=== PATIENT | female | born 1935 | race Caucasian/White ===

== ENCOUNTER 2016-02-16 05:30 | Inpatient (IN) | payer OTHER ==
[2016-02-06 09:19] VITALS: BMI 28.0
--- NOTE | 2016-02-06 09:59 | PAT Medication Instructions ---
Service Date Feb 06, 2016. Current Home Medication List Aspirin Enteric Coated (Ecotrin Or Generic), 81 MG PO QAM Ipratropium-Albuterol (Duoneb), 1 TREATMENT INH Q4H PRN for PRN Lorazepam (Ativan *), 0.5 MG PO BID PRN for PRN Losartan Potassium & Hydrochlo (Losartan Potassium/Hydroc), 1 TAB PO QAM Metoprolol Tartrate (Lopressor) (Lopressor), 25 MG PO BID Sennosides-Docusate Sodium (Stool Softener), 2 TAB PO HS Simethicone (Gas-X), 1 TAB PO QPM Medication Instructions For Your Scheduled Surgery - Check with surgeon for instructions: Aspirin Enteric Coated (Ecotrin Or Generic), 81 MG PO QAM - Hold the following medications the morning of surgery: Losartan Potassium & Hydrochlo (Losartan Potassium/Hydroc), 1 TAB PO QAM - Take the following medications the morning of surgery with a sip of water: Metoprolol Tartrate (Lopressor) (Lopressor), 25 MG PO BID Lorazepam (Ativan *), 0.5 MG PO BID PRN for PRN (if needed) Ipratropium-Albuterol (Duoneb), 1 TREATMENT INH Q4H PRN for PRN (if needed) - Take the following medications as scheduled the night before surgery: Simethicone (Gas-X), 1 TAB PO QPM Sennosides-Docusate Sodium (Stool Softener), 2 TAB PO HS Metoprolol Tartrate (Lopressor) (Lopressor), 25 MG PO BID Lorazepam (Ativan *), 0.5 MG PO BID PRN for PRN (if needed) Ipratropium-Albuterol (Duoneb), 1 TREATMENT INH Q4H PRN for PRN (if needed) If you have any questions please call us at [phone] (Analia Reilly PA-C ) or [phone] or [phone]
[2016-02-06 10:40] LABS: BASO % 0.4 %; BASO ABS # 0.02 K/uL (0-0.2); COMPLETE YES; EOS % 1.4 %; HEMATOCRIT 35.7 % (37-47); IG% 0.2 %; LYMPH % 17.5 %; MEAN CELL VOLUME 91.8 fL (80-100); MEAN CORPUSCULAR HEMOGLOBIN 32.4 pg (25-34); MEAN CORPUSCULAR HGB CONC 35.3 g/dl (32-36); MEAN PLATELET VOLUME 8.6 fL (7.4-10.4); MONO % 11.6 %; NEUT % 68.9 %; PLATELET COUNT 330 K/uL (130-400); RED BLOOD COUNT 3.89 M/uL (4.2-5.4)
[2016-02-06 10:58] LABS: BUN/CREATININE RATIO 21.3 (10-20); CALCIUM 8.7 mg/dl (8.5-10.1); CREATININE 0.53 mg/dl (0.60-1.20); POTASSIUM 3.9 mmol/L (3.5-5.1)
[2016-02-16] VITALS (7 sets, daily range): BP systolic 106–127; BP diastolic 46–69; PULSE 61–84; TEMP 36.3–36.8; O2SAT 95–99; Ht 157.5 cm; Wt 68.6 kg
[~2016-02-16] VITALS: Ht 157.5 cm; Wt 68.6 kg
[~2016-02-16 05:30] MED LIST: ASPI81TA21 PO; ATV5 PO; IPRASOL4 INH; LOSA100T26 PO; METO25TA56 PO; SENNTAB23 PO; SIME80CH PO
[2016-02-16] MEDS ORDERED: LACTATED RINGER'S 1000ML 1,000 ML IV SCH (06:00)
[2016-02-16] MEDS ORDERED: ROCURONIUM BROMIDE 10 MG/ML 5 ML VIAL ONE (06:31)
[2016-02-16] MEDS ORDERED: LIDOCAINE HCL 2% 2 ML VIAL (20MG/ML) ONE (06:31)
[2016-02-16] MEDS ORDERED: ONDANSETRON INJ 2 MG/ML 2 ML VIAL ONE (06:31)
[2016-02-16] MEDS ORDERED: PROPOFOL IV EMULSION 10 MG/ML 20 ML VIAL IV ONE (06:31)
[2016-02-16] MEDS ORDERED: FENTANYL CITRATE INJ 50 MCG/1 ML 2 ML VIAL ONE ×2 (06:31→08:27)
--- NOTE | 2016-02-16 07:02 | History & Physical Bridge Note ---
H&P Re-Evaluation Bridge Note: I have examined the patient, reviewed the History & Physical and in the interval since the performance of the History & Physical I have noted the following changes of clinical significance: No changes noted
[2016-02-16] MEDS ORDERED: BUPIVACAINE LIPOSOME 1/3% 266 MG/20 ML VIAL INFIL ONE (07:12)
[2016-02-16] MEDS ORDERED: ATROPINE SULFATE 0.1 MG/ML 5ML SYR IV PRN (08:45)
[2016-02-16] MEDS ORDERED: PHENYLEPHRINE 100MCG/ML 5ML SYR IV PRN (08:45)
[2016-02-16] MEDS ORDERED: ONDANSETRON INJ 2 MG/ML 2 ML VIAL IV PRN ×2 (08:45→11:15)
[2016-02-16] MEDS ORDERED: HYDROmorphone INJ 2 MG/ML SYR/VIAL IV PRN (08:45)
[2016-02-16] MEDS ORDERED: EpHEDrine SULFATE INJ 50 MG/ML AMP IV PRN (08:45)
[2016-02-16] MEDS ORDERED: EpHEDrine SULFATE 50MG/5ML SYR ONE (09:28)
[2016-02-16] MEDS ORDERED: EpHEDrine SULFATE INJ 50 MG/ML AMP ONE (10:07)
[2016-02-16] MEDS ORDERED: ESMOLOL HCL 10 MG/ML 10 ML VIAL ONE (10:17)
[2016-02-16] MEDS ORDERED: MoRPHine SULFATE 2 MG/ML CARP IV PRN (11:15)
[2016-02-16] MEDS ORDERED: OXYCODONE/ACETAMINOPHEN 5-325 TAB PO PRN (11:15)
--- NOTE | 2016-02-16 11:46 | DIAGNOSTIC IMAGING REPORT ---
SINGLE VIEW CHEST CLINICAL HISTORY: Status post right middle lobe resection FINDINGS: An AP, portable, upright chest radiograph is compared to study dated 11/30/2015 and correlated with chest CT dated 09/16/2015. The examination is degraded by portable technique and patient rotation. The cardiomediastinal silhouette is unremarkable. There is atherosclerotic calcification of the thoracic aorta. The emphysema and chronic interstitial thickening is unchanged. There are postoperative changes and volume loss in the right lung consistent with the reported history of right middle lobe resection. Opacity in the right midlung could represent atelectasis or loculated fluid. Pleural fluid is also seen at the right lung base with associated right basilar airspace opacities. Suture material projects over the right lung base. A chest tube is now present at the right apex. No pneumothorax is seen. The skeletal structures are osteopenic. The bony thorax is grossly intact. Simultaneous emphysema is noted along the right chest wall. IMPRESSION: 1. There are postoperative changes consistent with the reported history of right middle lobe resection. 2. There is opacity in the right midlung, likely representing volume loss and/or loculated fluid. Pleural fluid is also seen at the right lung base. 3. A right chest tube is in place. No pneumothorax is seen. 4. Emphysema. Left lung appears clear. Electronically signed by: Hussein Delatorre M.D. 02/16/2016 11:45 AM Dictated Date/Time: 02/16/2016 11:41 AM
--- NOTE | 2016-02-16 12:01 | OPERATIVE REPORT ---
DATE OF OPERATION: 02/16/2016 PREOPERATIVE DIAGNOSIS: Enlarging mass right middle lobe. POSTOPERATIVE DIAGNOSIS: Adenocarcinoma right middle lobe. PROCEDURE: Thoracoscopic right middle lobectomy with mediastinal lymphadenectomy. SURGEON: Dr. Powell. SIDE LASTER TACK: Kiko Meza PA-C. ANESTHESIA: General anesthesia with endotracheal intubation using double lumen tube. INDICATION FOR PROCEDURE AND FINDINGS: This is a very nice 80-year-old female who has an enlarging mass in her right middle lobe. We worked her up and I recommended surgery a couple months ago and she sought several other opinions and came back and agreed to surgery. We set her up to be done today. She really does not have any symptoms from this. On 02/16/2016 the patient was brought to the operating room and underwent uncomplicated thoracoscopic right middle lobectomy. We had negligible blood loss. There was no air leak at the conclusion of the case. I did an Exparel block of her intercostals from the 2nd to the 11th rib and she awakened in excellent pain control. This was an adenocarcinoma of the lung. On frozen section her margins were negative. I did perform a mediastinal lymphadenectomy. PROCEDURE: The patient brought to the operating room and laid in the supine position. General anesthesia induced and endotracheal intubation was performed with a double lumen tube. Appropriate lines had been placed (a Malcolm catheter was not been placed). The patient was placed in the left lateral decubitus position and the right chest was prepped and draped in usual sterile fashion. A bit anterior to the tip of the scapula, 1 interspace below I made a small incision and entered the pleural cavity with a Veress needle and infused carbon dioxide. I then placed a 5 mm port, infused CO2 and then upon placing a 5 mm scope we could see that there were actually some significant adhesions to the chest wall. These were just in one area and I placed another port which was a 10 mm port anterior to the 7th interspace. I used a Harmonic scalpel and took these adhesions down. The fissures were almost complete. The mass was noted and was not attached to anything. I placed another port for 10 mm port at about the 4th interspace. I then began taking down adhesions between the lobes. This was easily done with flimsy adhesions between the middle lobe and the lower lobe and I was actually able to almost completely free up the fissure anteriorly. I identified the artery and worked my way up by cleaning this off bluntly and sharply. The pulmonary artery was identified and then I went to the medial aspect and identified the vein. There was an incomplete portion of the fissure anteriorly. I dissected this out medially and laterally and then was able to fire Endo-ADWOA stapler across this. This identified the arteries and veins quite nicely. I then was able to free up the middle veins draining the middle lobe. There were 2 that came off almost had a common confluence prior to going into the superior pulmonary vein and I fired a stapler across this. This freed things quite nicely and we were able to come up and follow the artery down. There were 2 branches of the pulmonary artery which led to the middle lobe and I divided both of these with Endo-ADWOA stapler. The identifier Endo-ADWOA stapler across the bronchus. I had to complete the fissure superiorly with 1 more staple line and then using an Endobag I removed the mass from the field. We sent this off for frozen section. While waiting for this we mixed 266 mg of Exparel and 60 mL of normal saline and blocked from the 2nd interspace to the 11th interspace under thoracoscopic vision. Again, while we were still waiting for the frozen section I took down the inferior pulmonary ligament and dissected out level 9 node. I really did not see much of the level 8 node. I took out 2 level 7 nodes. These were not enlarged. I also opened up the mediastinal pleura and took out a level 2, level 4, level 10, level 11. We really had insignificant bleeding in this case and there was no air leak at the conclusion of the case. When the frozen section came back with negative margins a 24-Kiswahili chest tube was directed towards the apex and anterior thoracoscopy port and sutured in place with heavy silk suture. 0 Vicryl used to approximate the muscle layers and all 3 ports and then 3-0 antibiotic impregnated Vicryl was used in a running subcuticular fashion to approximate the wound edges. I attest to the content of the Intraoperative Record and any orders documented therein. Any exceptio ns are noted below.
--- NOTE | 2016-02-16 12:45 | Anesthesiology Progress Note ---
Anesthesia Post Op Note Date & Time Feb 16, 2016 at 12:45 Vital Signs Pain Intensity: 1 Vital Signs Past 12 Hours Date Time Temp Pulse Resp B/P Pulse Ox O2 Delivery O2 Flow Rate FiO2 02/16/16 12:05 36.5 80 16 115/51 97 Nasal Cannula 4 02/16/16 11:50 73 16 107/50 97 Nasal Cannula 4 02/16/16 11:40 71 16 111/52 100 Nasal Cannula 4 02/16/16 11:30 74 16 128/57 100 Mask 10 02/16/16 11:20 36 71 16 116/63 100 Mask 10 02/16/16 07:36 67 14 99 Diffusion Mask 10.0 02/16/16 05:54 36.8 61 20 121/46 95 Room Air Notes Mental Status: alert / awake / arousable, participated in evaluation Pt Amnestic to Procedure: Yes Nausea / Vomiting: adequately controlled Pain: adequately controlled Airway Patency, RR, SpO2: stable & adequate BP & HR: stable & adequate Hydration State: stable & adequate Anesthetic Complications: no major complications apparent
[2016-02-16] MEDS ORDERED: GLYCOPYRROLATE INJ 0.2 MG/ML VIAL ONE (13:10)
[2016-02-16] MEDS ORDERED: NEOSTIGMINE METHYLSULFATE 5 MG/5 ML SYR ONE (13:10)
[2016-02-16 14:20] LABS: PARTIAL THROMBOPLASTIN RATIO 1.1; PROTHROMBIN TIME (PATIENT) 11.1 SECONDS (9.0-12.0)
[2016-02-16] MEDS: D5W AND 1/2NSS 1,000 ML IV SCH ×2 (14:45→21:03)
[2016-02-16] MEDS: KETOROLAC TROMETHAMINE 15 MG/ML VIAL IV. SCH ×2 (14:46→21:04)
[2016-02-16] MEDS: ACETAMINOPHEN IV 1,000 MG in EMPTY BAG 0 ML IV SCH ×2 (14:46→21:04)
[2016-02-16] MEDS: METOCLOPRAMIDE HCL INJ 5 MG/ML 2 ML VIAL IV. SCH ×2 (14:46→21:04)
[2016-02-16] MEDS: CLINDAMYCIN IV 900 MG in DEXTROSE 5% ADD-VANTAGE 100ML 100 ML IV SCH (19:17)
[2016-02-16] MEDS: DOCUSATE SODIUM 100 MG CAP PO SCH (21:02)
[2016-02-16] MEDS: METOPROLOL TARTRATE 25 MG TAB PO SCH (21:03)
[2016-02-17] VITALS (12 sets, daily range): BP systolic 98–146; BP diastolic 57–73; PULSE 68–98; TEMP 36.3–36.8; O2SAT 91–95
[2016-02-17] MEDS: CLINDAMYCIN IV 900 MG in DEXTROSE 5% ADD-VANTAGE 100ML 100 ML IV SCH (03:01)
[2016-02-17] MEDS: LORAZEPAM 0.5 MG TAB PO PRN ×2 (03:06→20:30)
[2016-02-17] MEDS: KETOROLAC TROMETHAMINE 15 MG/ML VIAL IV. SCH (05:03)
[2016-02-17] MEDS: D5W AND 1/2NSS 1,000 ML IV SCH (05:04)
[2016-02-17] MEDS: ACETAMINOPHEN IV 1,000 MG in EMPTY BAG 0 ML IV SCH (05:04)
[2016-02-17] MEDS: METOCLOPRAMIDE HCL INJ 5 MG/ML 2 ML VIAL IV. SCH (05:04)
[2016-02-17] MEDS: ALBUT/IPRATROP 3MG/0.5MG NEB 3 ML VIAL INH PRN ×2 (05:28→16:37)
--- NOTE | 2016-02-17 07:13 | DIAGNOSTIC IMAGING REPORT ---
CHEST ONE VIEW PORTABLE CLINICAL HISTORY: Status post right middle lobectomy. COMPARISON STUDY: Chest radiograph February 16, 2016. FINDINGS: A right sided chest tube remains in place. No pneumothorax is identified. Triangular shaped opacity projecting over the right midlung is again noted. Right hemithorax volume loss is noted. There is no evidence of pulmonary edema. There may be pulmonary vascular congestion. Mild cardiomegaly is unchanged. There is gas within the right chest wall. A small right pleural effusion has decreased in size. IMPRESSION: 1. Right sided chest tube in place. Slight decrease in size of a small right pleural effusion. No pneumothorax identified. 2. No significant change in triangular shaped right midlung opacity. Electronically signed by: Mynor Mariscal M.D. 02/17/2016 7:11 AM Dictated Date/Time: 02/17/2016 7:08 AM
[2016-02-17 08:10] LABS: BASO % 0.1 %; BASO ABS # 0.01 K/uL (0-0.2); COMPLETE YES; EOS % 0.4 %; HEMATOCRIT 28.7 % (37-47); IG% 0.3 %; LYMPH % 11.5 %; LYMPH ABS # 0.84 K/uL (1.2-3.4); MEAN CELL VOLUME 90.8 fL (80-100); MEAN CORPUSCULAR HEMOGLOBIN 32.9 pg (25-34); MEAN CORPUSCULAR HGB CONC 36.2 g/dl (32-36); MEAN PLATELET VOLUME 8.3 fL (7.4-10.4); NEUT % 80.7 %; PLATELET COUNT 244 K/uL (130-400); RED BLOOD COUNT 3.16 M/uL (4.2-5.4); WHITE BLOOD COUNT 7.32 K/uL (4.8-10.8)
[2016-02-17 08:38] LABS: BUN/CREATININE RATIO 23.5 (10-20); CALCIUM 7.9 mg/dl (8.5-10.1); CREATININE 0.71 mg/dl (0.60-1.20); POTASSIUM 3.8 mmol/L (3.5-5.1)
[2016-02-17] MEDS: DOCUSATE SODIUM 100 MG CAP PO SCH ×2 (08:43→20:23)
[2016-02-17] MEDS: ASPIRIN 81 MG ECTAB PO SCH (08:43)
[2016-02-17] MEDS: METOPROLOL TARTRATE 25 MG TAB PO SCH ×2 (08:43→20:23)
[2016-02-17] MEDS: ENOXAPARIN 40 MG/0.4 ML SYR SQ SCH (08:43)
[2016-02-17] MEDS: LOSARTAN POTASSIUM 50 MG TAB PO SCH (08:46)
[2016-02-17] MEDS ORDERED: FUROSEMIDE INJ 10 MG in SYRINGE 0 ML IV SCH (09:30)
--- NOTE | 2016-02-17 09:32 | SURGERY PROGRESS NOTE ---
DATE: 02/17/2016 Eden Fink is seen today 1 day status post thoracoscopic right middle lobectomy and mediastinal lymphadenectomy. She looks great. She is on room air with 95% saturation. She is sitting up in the chair, eating breakfast. Her chest tube has drained a total of 150 mL since surgery. It is serous drainage. She has no air leak. Chest x-ray shows complete expansion of her lung with no pneumothorax; however, there is a triangular-shaped density which I think is improved from yesterday. This may be atelectasis or it could be some intrafissure fluid. She has some wheezing today on exam. She states this occurs sometimes at home. She does have an inhaler she uses at home and I will order that to be used regularly. We will get her up and ambulating today. Today, her white count is 7320, hemoglobin of 10.4. Her sodium is 127, chloride 93, and her BUN and creatinine are 17 and 0.71. I am going to give her a bit of Lasix today as I think this may be dilutional. It should be noted that on 02/06/2016, her sodium was 129. We will also check daily weights on her. ASSESSMENT AND PLAN: Postoperative day #1 status post thoracoscopic right middle lobectomy. We will correct her electrolytes by stopping her fluids, gently diuresing her, and we will get her up mobilizing and I will probably discharge her in the morning.
[2016-02-18] VITALS (13 sets, daily range): BP systolic 146–188; BP diastolic 63–78; PULSE 61–102; TEMP 36.6–37.1; O2SAT 88–95
[2016-02-18] MEDS: ALBUT/IPRATROP 3MG/0.5MG NEB 3 ML VIAL INH PRN ×4 (02:14→11:24)
[2016-02-18 07:25] LABS: BUN/CREATININE RATIO 14.4 (10-20); CALCIUM 8.1 mg/dl (8.5-10.1); CREATININE 0.54 mg/dl (0.60-1.20); POTASSIUM 3.9 mmol/L (3.5-5.1)
[2016-02-18] MEDS: LOSARTAN POTASSIUM 50 MG TAB PO SCH (07:32)
[2016-02-18] MEDS: ASPIRIN 81 MG ECTAB PO SCH (07:32)
[2016-02-18] MEDS: DOCUSATE SODIUM 100 MG CAP PO SCH ×2 (07:32→21:52)
[2016-02-18] MEDS: METOPROLOL TARTRATE 25 MG TAB PO SCH ×2 (07:33→21:52)
[2016-02-18] MEDS: ENOXAPARIN 40 MG/0.4 ML SYR SQ SCH (07:33)
[2016-02-18] MEDS ORDERED: POLYETHYLENE (MIRALAX) 17 GM PACK PO PRN (17:00)
--- NOTE | 2016-02-18 17:27 | DIAGNOSTIC IMAGING REPORT ---
CHEST 2 VIEWS ROUTINE CLINICAL HISTORY: Status post chest tube removal. Right middle lobectomy. COMPARISON STUDY: Chest radiograph February 17, 2016. FINDINGS: The right chest tube has been removed. A tiny right apical pneumothorax is noted with pleural separation of 4 mm. [place] shaped right midlung opacity is again noted. A small right pleural effusion has slightly increased. There is interstitial thickening which is unchanged. Cardiac size is stable. IMPRESSION: 1. Tiny right apical pneumothorax following chest tube removal. 2. Slight increase in size of a small right pleural effusion. 3. Persistent triangular-shaped right midlung opacity. Electronically signed by: Mynor Mariscal M.D. 02/18/2016 5:25 PM Dictated Date/Time: 02/18/2016 5:24 PM
--- NOTE | 2016-02-18 17:39 | SURGERY PROGRESS NOTE ---
DATE: 02/18/2016 SUBJECTIVE: Ms. Fink was seen today on 02/18/2016. She is 2 days status post thoracoscopic right middle lobectomy and mediastinal lymphadenectomy. She looks good. Her saturations are in the mid 90s on room air. Respiration rate 16-20. Her blood pressure has been elevated, but she has a chest tube in. Her blood pressure this morning was 146/73 and this evening it is 184/73. I removed her chest tube and I am going to see if this will come down. I prefer not to add any antihypertensives at this point as her discharge is eminent. Her lung sounds much better. She has no wheezing today. Her electrolytes have improved after we stopped the IV fluids. Her sodium is at 132, potassium 3.9, chloride is 96 and her BUN and creatinine are 10 and 0.8. I am going to give her 1 more dose of diuretic today. She is definitely better after we pulled the chest tube. Will check an AP and lateral chest and tentatively discharge her tomorrow, although thus far there are some disposition issues as she lives alone and is almost 81 years old.
[2016-02-18] MEDS ORDERED: FUROSEMIDE INJ 10 MG in SYRINGE 0 ML IV ONE (17:45)
[2016-02-18] MEDS: POTASSIUM CHLORIDE 20 MEQ TABCR PO SCH (19:41)
[2016-02-18] MEDS: LORAZEPAM 0.5 MG TAB PO PRN (21:52)
[2016-02-19 07:43] VITALS: BP 159/68; PULSE 90; TEMP 36.7; O2SAT 94
--- NOTE | 2016-02-19 08:05 | Discharge Instructions ---
Discharge Instructions Admission Reason for Admission: Right Lung Mass Discharge Discharge Diagnosis / Problem: Lung Cancer Discharge Goals Goal(s): Learn about illness Activity Recommendations Activity Limitations: as noted below Lifting Limitations: none Shower/Bathe: tomorrow 1. Do not drive if taking pain medication. 2. You may shower and clean incisions with soap and water. No tub baths. 3. Do not fly until cleared to do so by Dr. Powell. . Instructions / Follow-Up Instructions / Follow-Up 1. Dr. Powell in 1 week. Office will call you with date and time of appointment. You will need a chest x-ray prior to appointment. Current Hospital Diet Patient's current hospital diet: Regular Diet Discharge Diet Recommended Diet: Regular Diet Procedures Procedures Performed: Right Video Assisted Thoracoscopy with Right Middle Lobectomy and Mediastinal Lymphadenectomy Pending Studies Studies pending at discharge: no Medical Emergencies . Who to Call and When: Medical Emergencies: If at any time you feel your situation is an emergency, please call 911 immediately. . Non-Emergent Contact Non-Emergency issues call your: Surgeon Call Non-Emergent contact if: you have a fever, your pain is not controlled, your pain is worsening, wound has increased drainage . "Provider Documentation" section prepared by Jacob Meza. VTE Core Measure Inpt VTE Proph given/why not?: Enoxaparin (Lovenox)SQ
--- NOTE | 2016-02-19 08:07 | Anesthesiology Progress Note ---
Anesthesia Post Op Note Date & Time Feb 19, 2016 at 08:06 Vital Signs Pain Intensity: 0.0 Vital Signs Past 12 Hours Date Time Temp Pulse Resp B/P Pulse Ox O2 Delivery O2 Flow Rate FiO2 02/19/16 07:43 36.7 90 24 159/68 94 Nasal Cannula 1.5 02/19/16 00:27 Room Air 02/18/16 22:55 36.6 80 18 169/72 93 Room Air 02/18/16 21:49 102 187/74 Notes Mental Status: alert / awake / arousable, participated in evaluation Pt Amnestic to Procedure: Yes Nausea / Vomiting: adequately controlled Pain: adequately controlled Airway Patency, RR, SpO2: stable & adequate BP & HR: stable & adequate Hydration State: stable & adequate Anesthetic Complications: no major complications apparent
[2016-02-19 08:21] VITALS: O2SAT 94
[2016-02-19] MEDS: POTASSIUM CHLORIDE 20 MEQ TABCR PO SCH (08:53)
[2016-02-19] MEDS: ASPIRIN 81 MG ECTAB PO SCH (08:54)
[2016-02-19] MEDS: METOPROLOL TARTRATE 25 MG TAB PO SCH (08:54)
[2016-02-19] MEDS: LOSARTAN POTASSIUM 50 MG TAB PO SCH (08:54)
[2016-02-19] MEDS: DOCUSATE SODIUM 100 MG CAP PO SCH (08:54)
[2016-02-19] MEDS ORDERED: DOCU-94 PO (08:55)
[2016-02-19] MEDS ORDERED: TRAM-10 PO (08:55)
[2016-02-19] MEDS: ENOXAPARIN 40 MG/0.4 ML SYR SQ SCH (08:55)
[2016-02-19] MEDS: LORAZEPAM 0.5 MG TAB PO PRN (09:03)
[2016-02-19 09:24] VITALS: O2SAT 93
--- NOTE | 2016-02-19 10:30 | DIAGNOSTIC IMAGING REPORT ---
CHEST 2 VIEWS ROUTINE CLINICAL HISTORY: hypoxia COMPARISON STUDY: 02/18/2016 FINDINGS: The heart is mildly enlarged. There is a persistent right pleural effusion. There is a tiny right apical pneumothorax. There is a triangular right midlung zone opacity unchanged from the preceding study. This could represent intrafissural fluid.[ IMPRESSION: 1. Trace right apical pneumothorax 2. Persistent right pleural effusion unchanged in size 3. Persistent triangular within the right midlung zone Electronically signed by: Donavan Mccall M.D. 02/19/2016 10:28 AM Dictated Date/Time: 02/19/2016 10:26 AM
[2016-02-19 11:41] VITALS: BP 150/70; PULSE 76; TEMP 36.9; O2SAT 94
--- NOTE | 2016-02-19 12:58 | DISCHARGE SUMMARY ---
DATE OF DISCHARGE: 02/19/2016 DISCHARGE DIAGNOSES: Nonsmall cell lung carcinoma, right middle lobe. HOSPITAL COURSE: Edne Fink is a soon to be 81-year-old female who has a mass that has been growing in her right middle lobe, which is concerning. I have been following her for several months and recommended a thoracoscopic resection of this mass. She sought several opinions and then came back. On 02/16/2016 I took the patient to the operating room and did an uncomplicated right middle lobectomy thoracoscopically with a lymph node dissection. This does appear to be an adenocarcinoma with papillary features. We had clean resection margins. The final pathology and lymph node analysis is not back. We watched her on the floor that night after surgery. We did not use a Malcolm catheter in her, and quite frankly she had no air leak and we lost a minimal amount of blood during the case. She was up in a chair the night of surgery and was ambulating in the room. She was ambulating in the hallway the following day. Postop day 2, I removed her chest tube. However, her A-a gradient was a bit higher than I would like. I asked that this patient stay in the hospital another day and ambulate in the hallway and work on her pulmonary toilet. In addition, her sodium was low for reasons which are not clear and after giving her some Lasix and stopping her IV fluids, her sodium came up 127 to 132. She moved her bowels. She was tolerating a regular diet. She had very little in the way of pain. The following day, she did have a small right pleural effusion, but no evidence of pneumothorax and I discharged her home on postoperative day 3. A 2-step evaluation was performed by Respiratory and she did not qualify for oxygen. The patient's daughter, Floridalma Aparicio, works in the lab here at [facility]. I discussed this with Floridalma before discharging her. The patient lives alone and is almost 81 years old; however, she stated she felt "great" and wanted to go home. I will see her back in the office next week with a chest x-ray. I instructed the patient to call me should any problems arise.
[2016-02-19 13:02] VITALS: BP 150/70; PULSE 76; TEMP 36.9; O2SAT 94
== END 2016-02-19 13:30 | disposition home health service (06) | DRG 165 ==
LOC: ENRESERVDT → ENRESERVTM → C.ACU 05:30 → C.MSN 07:03
PROVIDERS: ADMIT Surgery; ATTEND Surgery
PROC: 07B70ZX Excision of Thorax Lymphatic, Open Approach, Diagnostic (ICD-10-PCS; 2016-02-16)
PROC: 0BTD4ZZ Resection of Right Middle Lung Lobe, Percutaneous Endoscopic Approach (ICD-10-PCS; principal; 2016-02-16 07:15)
DX: C34.2 Malignant neoplasm of middle lobe, bronchus or lung (principal)

== ENCOUNTER → 2016-02-28 | Outpatient (CLI) | payer OTHER ==
[~2016-02-28] MED LIST changes: +DOCU-94 PO; +TRAM-10 PO
--- NOTE | 2016-02-28 15:28 | DIAGNOSTIC IMAGING REPORT ---
TWO VIEW CHEST CLINICAL HISTORY: Pulmonary nodule. FINDINGS: PA and lateral chest radiographs are compared to study dated 02/19/2016 and correlated with chest CT dated 09/16/2015. The cardiomediastinal silhouette is unremarkable. There is atherosclerotic calcification of the thoracic aorta. There are postoperative changes from right-sided pulmonary resection. Fluid is again noted at the right lung base with right basilar opacities. Focal opacification is again seen in the right midlung. This could represent airspace opacification versus loculated fluid within the right fissure. There is no pneumothorax. The skeletal structures are osteopenic. Degenerative change is seen throughout the thoracic spine. 16 is gas is noted in the right chest wall. IMPRESSION: 1. There are postoperative changes from right-sided pulmonary resection with pleural fluid at the right lung base. This is similar to previous. 2. Opacification in the right midlung is unchanged. This could represent airspace opacification versus fluid within the fissure. 3. The left lung appears clear. Electronically signed by: Hussein Delatorre M.D. 02/28/2016 3:26 PM Dictated Date/Time: 02/28/2016 3:24 PM
== END | disposition home or self-care (01) ==
LOC: C.RAD 14:50
PROVIDERS: ATTEND Surgery
DX: R91.1 Solitary pulmonary nodule (principal)

== ENCOUNTER → 2017-05-14 | Outpatient (CLI) | payer OTHER ==
[~2017-05-14] MED LIST changes: -LOSA100T26 PO; +LOSA100T33 PO; -TRAM-10 PO
--- NOTE | 2017-05-14 11:46 | DIAGNOSTIC IMAGING REPORT ---
L KNEE 1 OR 2 VIEWS ROUTINE CLINICAL HISTORY: 82 years-old Female presenting with SYNOVIAL CYST OF POPLITEAL SPACE GAGNON UNSPECIFIED. TECHNIQUE: Frontal and lateral views of the left knee were obtained. COMPARISON: None. FINDINGS: Osteopenia. Mild medial joint space loss. No acute fracture allowing for osteopenia. No acute malalignment. Minimal osteophytosis noted at the medial compartment. No joint effusion. Atherosclerosis. IMPRESSION: 1. Evaluation for popliteal cyst is highly limited on radiograph. 2. Degenerative changes of the medial compartment. 3. Osteopenia. 4. No acute osseous injury. Electronically signed by: Surya Millan M.D. 05/14/2017 11:45 AM Dictated Date/Time: 05/14/2017 11:44 AM
== END | disposition home or self-care (01) ==
LOC: C.RAD1850 11:27
PROVIDERS: ATTEND Family Medicine
DX: M71.20 Synovial cyst of popliteal space [Baker], unspecified knee (principal)

== ENCOUNTER 2021-11-17 12:27 | Observation (INO) ==
[2021-11-17 14:33] LABS: Basophils # (auto) 0.04 K/uL (0-0.2); Basophils % (auto) 0.5 %; Eosinophils # (auto) 0.01 K/uL (0-0.50); Eosinophils % (auto) 0.1 %; Hematocrit (blood only) 35.6 % (34.1-44.9); Hemoglobin 12.2 g/dl (12.0-16.0); Immature Granulocytes # (auto) 0.03 K/uL (0.00-0.02); Immature Granulocytes % (auto) 0.4 %; Lymphocytes # (auto) 0.71 K/uL (1.2-3.4); Lymphocytes % (auto) 9.5 %; Mean Corpuscular Hgb Conc 34.3 g/dL (32.0-36.0); Mean Corpuscular Volume 90.4 fL (80.0-100.0); Mean Platelet Volume 8.7 fL (9.4-12.3); Monocytes # (auto) 0.75 K/uL (0.24-0.82); Neutrophils # (auto) 5.93 K/uL (1.4-6.5); Neutrophils % (auto) 79.5 %; Platelet Count 549 K/uL (130-400); RDW Coefficient of Variation 12.1 % (11.5-14.5); RDW Standard Deviation 40.2 fL (36.4-46.3); Red Blood Count 3.94 M/uL (3.93-5.22); White Blood Count 7.47 K/ul (4.8-10.8)
--- NOTE | 2021-11-17 14:43 | Emergency Department Note ---
Impression & Plan Acute exacerbation of chronic obstructive airways disease, Pulmonary edema, Hypoxia, Elevated troponin I level, Atrial fibrillation with rapid ventricular response, Acute hyponatremia ED Provider Note NAME: SALLIE COX AGE: 86 SEX: F : 1935 ARRIVES VIA: Walk-In INFORMANT: Patient, the patient's daughter ED PROVIDER(S): Lev Rizo DO CHIEF COMPLAINT: Shortness of breath HPI: The patient is an 86-year-old female who presented to the emergency department with her daughter for an evaluation of shortness of breath. The patient has been noticing shortness of breath symptoms over the course the last month. She does have a productive cough. She denies any hemoptysis. She has noticed some anterior chest discomfort which she describes a burning. This is also been ongoing for approximately 1 month. She is not been seen by her family doctor for the symptoms. She denies having any vomiting. The patient has not had any recent traveling. She does use tobacco products. She denies having any changes to her medications. She states she has been compliant with her outpatient medications. She has had no COVID exposure as far she knows. She states symptoms worsen with exertion. She also states that she has been having trouble lying flat recently because of shortness of breath. ROS: See above HPI for pertinent positives & negatives. A total of 10 systems reviewed and were otherwise negative. PAST MEDICAL HISTORY: See Below PAST SURGICAL HISTORY: See Below FAMILY HISTORY: See Below SOCIAL HISTORY: See Below HOME MEDICATIONS: See Below ALLERGIES: See Below VITALS: See Below PHYSICAL EXAMINATION: GENERAL: Patient is awake alert in no acute distress patient is resting c omfortably and showing no signs of anxiety EYES: The conjunctivae are clear. The pupils are round and reactive. EARS, NOSE, MOUTH AND THROAT: The nose is without any evidence of any deformity. Mucous membranes are moist. Tongue is midline. NECK: The neck is nontender and supple. RESPIRATORY: Diminished breath sounds are noted throughout. Rales were noted in all lung gimenez. There was conversational dyspnea. The patient was also noted to have tachypnea. CARDIOVASCULAR: Tachycardic and irregular heart sounds were noted auscultation. There is no definite murmur. GASTROINTESTINAL: The abdomen is soft. Abdomen is nontender. MUSCULOSKELETAL/EXTREMITIES: There is no evidence of gross deformity full range of motion is noted in the hips and shoulders. SKIN: There is no obvious evidence of any rash. Trace pedal edema was noted bilaterally. NEUROLOGIC: Patient is awake alert and oriented x3. MEDICAL DECISION MAKING: The patient is an 86-year-old female who presented to the emergency department for an evaluation of difficulty breathing. The patient was having significant difficulty breathing when I initially evaluated her. Lung sounds were abnormal. It did appear that she was in rapid atrial fibrillation which would be a new diagnosis for her. Because of this new atrial fibrillation as well as her lung findings I thought this could be significant for pulmonary edema. The patient was treated with supplemental oxygen. She was also given Lasix as well as a DuoNeb. She was feeling somewhat improved on reevaluation but given the pat ient's findings otherwise including her chest x-ray and her elevated troponin I discussed her case [facility] They have agreed to evaluate the patient in the emergency department for further management and disposition. Initially I thought the patient could be suffering from a pulmonary infection but her chest x-ray was not consistent with infection. She did have some inflammatory markers that were elevated but her procalcitonin was negative. I will the decision for antibiotics to the admitting team and I did discuss this with the admitting team. Triage Nursing notes reviewed. Prior medical records reviewed Vital Signs: reviewed and remarkable for elevated blood pressure tachycardia and hypoxia. Differential diagnosis: Reactive airway disease, pneumonia, pneumothorax, COPD, CHF, infections, cardiac ischemia, pulmonary embolism, musculoskeletal, gastrointestinal, as well as other pathologies. ER treatment provided: See below Diagnostics interpreted by me: ECG: EKG was obtained in the emergency department. My interpretation is atrial fibrillation at 109 bpm. Poor R wave progression was noted. LVH was suggested by voltage criteria. Diffuse ST segment depressions were noted especially in the inferior and lateral leads. This was compared to a tracing from February 26, 2018. Atrial fibrillation has replaced sinus rhythm. Cardiac Monitoring: An order was placed for continuous cardiac monitoring. The monitor shows a rate of 101 bpm with atrial fibrillation with RVR. Laboratory studies: As stated above and show below. Imaging studies: See below Consultation(s): I discussed this case with Branden who is [facility] ED COURSE: Procedures: none Critical Care: I have personally spent greater than 45 minutes of critical care time in the direct management of this patient. This includes bedside care, interpretation of diagnostic studies, and testing, discussion with consultants, patient, and family members, and other required patient management activities. This 45 minutes is in excess of all separately billable procedures. Past Med/Surg History Medical History (Updated 11/17/21 @ 16:47 by Lev Rizo DO) Contusion of rib on right side Fall Lung cancer Social History Smoking Status: Current every day smoker Preferred Language: Israeli Current Living Situation: Family Feels Safe at Home: Yes Allergies Allergies Allergy/AdvReac Type Severity Reaction Status Date / Time penicillin G Allergy Intermediate HIVES,RASH Verified 11/17/21 16:13 Sulfa (Sulfonamide Allergy Intermediate Hives Verified 11/17/21 16:13 Antibiotics) codeine AdvReac Severe HALLUCINATI Verified 11/17/21 16:13 ONS Home Meds Home Medications Medication Instructions Recorded Confirmed aspirin 81 mg tablet,delayed 81 mg PO DAILY 02/26/18 11/17/21 release escitalopram oxalate 5 mg tablet 5 mg PO DAILY 02/26/18 11/17/21 lorazepam 0.5 mg tablet 0.5 mg PO BID PRN Anxiety 02/26/18 11/17/21 metoprolol tartrate 25 mg tablet 25 mg PO BID 02/26/18 11/17/21 azithromycin 500 mg tablet 500 mg PO DIRECTED PRN PRIOR TO 11/17/21 11/17/21 DENTAL APPT. cetirizine 10 mg tablet (All Day 10 mg PO DAILY 11/17/21 11/17/21 Allergy (cetirizine)) cholecalciferol (vitamin D3) 25 25 mcg PO DAILY 11/17/21 11/17/21 mcg (1,000 unit) capsule (Vitamin D3) simethicone 80 mg chewable tablet 80 mg PO DIRECTED PRN 11/17/21 11/17/21 BLOATING/GAS DISCOMFORT telmisartan 80 mg tablet 80 mg PO DAILY 11/17/21 11/17/21 Results & Data (ED) Vital Signs Vital Signs - 24 hr 11/17/21 12:52 11/17/21 13:21 11/17/21 14:18 Temperature 36.9 C Temperature Source Temporal Artery Scan Pulse Rate 125 H Pulse Rate [Apical] 109 H Pulse Rhythm Regular Pulse Strength Normal Respiratory Rate 24 20 Respiratory Effort / Characteristics Spontaneous Short of Breath SOB on Exertion Non-Labored Respiratory Depth Normal Normal Respiratory Pattern Tachypnea Blood Pressure 133/56 L Blood Pressure [Left Arm] 148/85 H Blood Pressure Mean 81 Blood Pressure Mean [Left Arm] 106 Blood Pressure Position Sitting Pulse Oximetry 91 91 96 Oxygen Delivery Method Room Air Nasal Cannula Nasal Cannula Oxygen Flow Rate 0 2 Sepsis Recent Fever Within 48 Hours No Sepsis New/Unexplained Change in Mental Status No Sepsis Action Taken by Nursing No Action Required Oxygen Flow Rate - Titration 2 Pulse Oximetry Post Tiitration 93 11/17/21 14:44 11/17/21 16:04 11/17/21 16:49 Temperature Temperature Source Pulse Rate Pulse Rate [Apical] 106 H 103 H 101 H Pulse Rhythm Pulse Strength Respiratory Rate 20 18 18 Respiratory Effort / Characteristics Non-Labored Non-Labored Spontaneous Non-Labored Respiratory Depth Normal Normal Normal Respiratory Pattern Blood Pressure Blood Pressure [Left Arm] 153/76 H 144/80 H 144/56 H Blood Pressure Mean Blood Pressure Mean [Left Arm] 101 101 85 Blood Pressure Position Pulse Oximetry 93 92 92 Oxygen Delivery Method Room Air Room Air Room Air Oxygen Flow Rate Sepsis Recent Fever Within 48 Hours Sepsis New/Unexplained Change in Mental Status Sepsis Action Taken by Nursing Oxygen Flow Rate - Titration Pulse Oximetry Post Tiitration Home Medications Current Medication List: was personally reviewed by me Laboratory Data Attestation: I reviewed the patient's lab results. Result diagrams: 11/17/21 14:00 11/17/21 14:00 Lab Results 11/17/21 11/17/21 11/17/21 Range/Units 14:00 14:00 14:00 WBC 7.47 (4.8-10.8) K/ul RBC 3.94 (3.93-5.22) M/uL Hgb 12.2 (12.0-16.0) g/dl Hct 35.6 (34.1-44.9) % MCV 90.4 (80.0-100.0) fL MCH 31.0 (25.0-34.0) pg MCHC 34.3 (32.0-36.0) g/dL RDW Std Deviation 40.2 (36.4-46.3) fL RDW Coeff of [place] 12.1 (11.5-14.5) % Plt Count 549 H (130-400) K/uL MPV 8.7 L (9.4-12.3) fL Immature Gran % (Auto) 0.4 % Neut % (Auto) 79.5 % Lymph % (Auto) 9.5 % [place] % (Auto) 10.0 % Eos % (Auto) 0.1 % Baso % (Auto) 0.5 % Neut # (Auto) 5.93 (1.4-6.5) K/uL Lymph # (Auto) 0.71 L (1.2-3.4) K/uL [place] # (Auto) 0.75 (0.24-0.82) K/uL Eos # (Auto) 0.01 (0-0.50) K/uL Baso # (Auto) 0.04 (0-0.2) K/uL Immature Gran # (Auto) 0.03 H (0.00-0.02) K/uL ESR (0-30) mm/hr PT 11.6 (9.0-12.0) Seconds INR 1.1 (0.9-1.1) APTT 31.3 H (21.0-31.0) Seconds PTT Ratio 1.1 VBG pH (7.36-7.41) VBG pCO2 (38-50) mmHg VBG pO2 mmHg VBG HCO3 mmol/L VBG O2 Saturation % VBG Base Excess mEq/L Sodium 123 L (136-145) mmol/L Potassium 3.9 (3.5-5.1) mmol/L Chloride 89 L (98-107) mmol/L Carbon Dioxide 28 (21-32) mmol/L Anion Gap 6 (3-11) BUN 12 (6-23) mg/dl Creatinine 0.61 (0.6-1.2) mg/dl Est Cr Clr Drug Dosing 46.0 ml/min Est GFR ( Amer) 95.8 ml/min Est GFR (Non-Af Amer) 82.7 ml/min BUN/Creatinine Ratio 19.7 (10-20) Glucose 110 H (70-99(Fasting)) mg/dl Lactate (0.4-2.0) mmol/L Calcium 9.1 (8.5-10.1) mg/dl Magnesium 1.7 (1.7-2.4) mg/dl Total Bilirubin 0.9 (0.2-1.0) mg/dl Direct Bilirubin 0.2 (0-0.2) mg/dl AST 11 L (13-39) U/L ALT 4 L (7-52) U/L Alkaline Phosphatase 92 (34-104) U/L Troponin I High Sens 67.6 H* (0-14) pg/ml C-Reactive Protein 8.28 H (0-0.5) mg/dl Total Protein 7.1 (6.0-8.3) gm/dl Albumin 3.4 (3.4-5.0) gm/dl Globulin 3.7 (2.5-4.0) gm/dl Albumin/Globulin Ratio 0.9 (0.9-2) Procalcitonin (0-0.5) ng/ml SARS-CoV-2 (PCR) (Negative) Influenza Type A (PCR) (Neg) Influenza Type B (PCR) (Neg) RSV (RT-PCR) (Neg) 11/17/21 11/17/21 11/17/21 Range/Units 14:00 14:00 14:00 WBC (4.8-10.8) K/ul RBC (3.93-5.22) M/uL Hgb (12.0-16.0) g/dl Hct (34.1-44.9) % MCV (80.0-100.0) fL MCH (25.0-34.0) pg MCHC (32.0-36.0) g/dL RDW Std Deviation (36.4-46.3) fL RDW Coeff of [place] (11.5-14.5) % Plt Count (130-400) K/uL MPV (9.4-12.3) fL Immature Gran % (Auto) % Neut % (Auto) % Lymph % (Auto) % [place] % (Auto) % Eos % (Auto) % Baso % (Auto) % Neut # (Auto) (1.4-6.5) K/uL Lymph # (Auto) (1.2-3.4) K/uL [place] # (Auto) (0.24-0.82) K/uL Eos # (Auto) (0-0.50) K/uL Baso # (Auto) (0-0.2) K/uL Immature Gran # (Auto) (0.00-0.02) K/uL ESR 96 H (0-30) mm/hr PT (9.0-12.0) Seconds INR (0.9-1.1) APTT (21.0-31.0) Seconds PTT Ratio VBG pH (7.36-7.41) VBG pCO2 (38-50) mmHg VBG pO2 mmHg VBG HCO3 mmol/L VBG O2 Saturation % VBG Base Excess mEq/L Sodium Cancelled (136-145) mmol/L Potassium Cancelled (3.5-5.1) mmol/L Chloride Cancelled (98-107) mmol/L Carbon Dioxide Cancelled (21-32) mmol/L Anion Gap Cancelled (3-11) BUN Cancelled (6-23) mg/dl Creatinine Cancelled (0.6-1.2) mg/dl Est Cr Clr Drug Dosing Cancelled ml/min Est GFR ( Amer) Cancelled ml/min Est GFR (Non-Af Amer) Cancelled ml/min BUN/Creatinine Ratio Cancelled (10-20) Glucose Cancelled (70-99(Fasting)) mg/dl Lactate (0.4-2.0) mmol/L Calcium Cancelled (8.5-10.1) mg/dl Magnesium (1.7-2.4) mg/dl Total Bilirubin Cancelled (0.2-1.0) mg/dl Direct Bilirubin Cancelled (0-0.2) mg/dl AST Cancelled (13-39) U/L ALT Cancelled (7-52) U/L Alkaline Phosphatase Cancelled (34-104) U/L Troponin I High Sens Cancelled (0-14) pg/ml C-Reactive Protein Cancelled (0-0.5) mg/dl Total Protein Cancelled (6.0-8.3) gm/dl Albumin Cancelled (3.4-5.0) gm/dl Globulin (2.5-4.0) gm/dl Albumin/Globulin Ratio (0.9-2) Procalcitonin < 0.05 (0-0.5) ng/ml SARS-CoV-2 (PCR) (Negative) Influenza Type A (PCR) (Neg) Influenza Type B (PCR) (Neg) RSV (RT-PCR) (Neg) 11/17/21 11/17/21 11/17/21 Range/Units 14:39 14:44 14:53 WBC (4.8-10.8) K/ul RBC (3.93-5.22) M/uL Hgb (12.0-16.0) g/dl Hct (34.1-44.9) % MCV (80.0-100.0) fL MCH (25.0-34.0) pg MCHC (32.0-36.0) g/dL RDW Std Deviation (36.4-46.3) fL RDW Coeff of [place] (11.5-14.5) % Plt Count (130-400) K/uL MPV (9.4-12.3) fL Immature Gran % (Auto) % Neut % (Auto) % Lymph % (Auto) % [place] % (Auto) % Eos % (Auto) % Baso % (Auto) % Neut # (Auto) (1.4-6.5) K/uL Lymph # (Auto) (1.2-3.4) K/uL [place] # (Auto) (0.24-0.82) K/uL Eos # (Auto) (0-0.50) K/uL Baso # (Auto) (0-0.2) K/uL Immature Gran # (Auto) (0.00-0.02) K/uL ESR (0-30) mm/hr PT (9.0-12.0) Seconds INR (0.9-1.1) APTT (21.0-31.0) Seconds PTT Ratio VBG pH 7.42 H (7.36-7.41) VBG pCO2 44 (38-50) mmHg VBG pO2 57 mmHg VBG HCO3 29 mmol/L VBG O2 Saturation 89.6 % VBG Base Excess 3.5 mEq/L Sodium (136-145) mmol/L Potassium (3.5-5.1) mmol/L Chloride (98-107) mmol/L Carbon Dioxide (21-32) mmol/L Anion Gap (3-11) BUN (6-23) mg/dl Creatinine (0.6-1.2) mg/dl Est Cr Clr Drug Dosing ml/min Est GFR ( Amer) ml/min Est GFR (Non-Af Amer) ml/min BUN/Creatinine Ratio (10-20) Glucose (70-99(Fasting)) mg/dl Lactate 1.2 (0.4-2.0) mmol/L Calcium (8.5-10.1) mg/dl Magnesium (1.7-2.4) mg/dl Total Bilirubin (0.2-1.0) mg/dl Direct Bilirubin (0-0.2) mg/dl AST (13-39) U/L ALT (7-52) U/L Alkaline Phosphatase (34-104) U/L Troponin I High Sens (0-14) pg/ml C-Reactive Protein (0-0.5) mg/dl Total Protein (6.0-8.3) gm/dl Albumin (3.4-5.0) gm/dl Globulin (2.5-4.0) gm/dl Albumin/Globulin Ratio (0.9-2) Procalcitonin (0-0.5) ng/ml SARS-CoV-2 (PCR) NEGATIVE (Negative) Influenza Type A (PCR) Negative (Neg) Influenza Type B (PCR) Negative (Neg) RSV (RT-PCR) Negative (Neg) Administered Medications Discontinued Medications Albuterol (Albut/Ipratrop 3mg/0.5mg Neb 3 Ml Vial) 3 ml NEB NOW STA; Protocol Stop: 11/17/21 16:42 Last Admin: 11/17/21 16:49 Dose: 3 ml Documented By: [facility] Furosemide (Furosemide 40 Mg/4 Ml Vial) 40 mg IV ONE ONE Stop: 11/17/21 16:42 Last Admin: 11/17/21 16:49 Dose: 40 mg Documented By: [facility] Imaging Data Radiologist's Impression: Chest X-Ray 11/17/21 13:31 XR chest 1V portable CLINICAL HISTORY: Shortness of breath. COMPARISON STUDY: Chest radiograph February 26, 2018. PET/CT October 11, 2015. FINDINGS: There is no pneumothorax. Small right and trace left pleural effusions are present. Postoperative findings within the right lung are present. Interstitial thickening favors mild pulmonary edema. There is a 3.1 cm masslike opacity within the left midlung. Possible additional 3 cm nodular opacity within the left mid to upper lung is noted. IMPRESSION: 1. Several nodular opacities within the left lung, as described above. These may be neoplastic. Nonemergent chest CT is recommended. 2. Small right and trace left pleural effusions. Suspected mild interstitial pulmonary edema. ACT 112: Positive. There are findings on this exam that require communication between the performing entity and the patient following Patient Test Result Information Act ([place] Act 112) guidelines. Electronically signed by: Mynor Mariscal M.D. 11/17/2021 4:28 PM Discharge Plan Visit Data Chief Complaint: Shortness of Breath/Dyspnea Stated Complaint: SOB, COUGH ED Provider: Lev Rizo Discharge Problem: Acute exacerbation of chronic obstructive airways disease, Pulmonary edema, Hypoxia, Elevated troponin I level, Atrial fibrillation with rapid ventricular response, Acute hyponatremia Patient Disposition: Being Evaluated by Hospitalist Forms Stand Alone Forms: [facility] Prescriptions Prescriptions: No Action aspirin 81 mg Tablet,Delayed Release (Dr/Ec) 81 mg PO DAILY lorazepam 0.5 mg tablet 0.5 mg PO BID PRN (Reason: Anxiety) escitalopram oxalate 5 mg tablet 5 mg PO DAILY metoprolol tartrate 25 mg tablet 25 mg PO BID cetirizine [All Day Allergy (cetirizine)] 10 mg Tablet 10 mg PO DAILY telmisartan 80 mg tablet 80 mg PO DAILY simethicone [Gas-X] 80 mg Tablet,Chewable 80 mg PO DIRECTED PRN (Reason: BLOATING/GAS DISCOMFORT) cholecalciferol (vitamin D3) [Vitamin D3] 25 mcg (1,000 unit) Capsule 25 mcg PO DAILY azithromycin 500 mg Tablet 500 mg PO DIRECTED PRN (Reason: PRIOR TO DENTAL APPT.) Referrals Referrals: Ekta Molnia DO [Primary Care Provider] -
[2021-11-17 14:49] LABS: INR 1.1 (0.9-1.1); Partial Thromboplastin Ratio 1.1; Partial Thromboplastin Time 31.3 Seconds (21.0-31.0); Prothrombin Time 11.6 Seconds (9.0-12.0)
[2021-11-17 15:08] LABS: Albumin Globulin Ratio 0.9 (0.9-2); Albumin Level 3.4 gm/dl (3.4-5.0); BUN Creatinine Ratio 19.7 (10-20); Bilirubin Direct 0.2 mg/dl (0-0.2); Bilirubin,Total 0.9 mg/dl (0.2-1.0); C Reactive Protein 8.28 mg/dl (0-0.5); Calcium 9.1 mg/dl (8.5-10.1); Est GFR (African American) 95.8 ml/min; Est GFR (Non-African American) 82.7 ml/min; Globulin 3.7 gm/dl (2.5-4.0); Magnesium 1.7 mg/dl (1.7-2.4); Potassium 3.9 mmol/L (3.5-5.1); Total Protein 7.1 gm/dl (6.0-8.3)
[2021-11-17 15:12] LABS: Troponin I High Sensitivity 67.6 pg/ml (0-14)
[2021-11-17 15:34] LABS: Base Excess VBG 3.5 mEq/L; HCO3 VBG 29 mmol/L; Oxygen Saturation VBG 89.6 %; PCO2 VBG 44 mmHg (38-50); PO2 VBG 57 mmHg; pH VBG 7.42 (7.36-7.41)
[2021-11-17 15:41] LABS: Influenza A virus by PCR Negative (Neg); Influenza B virus by PCR Negative (Neg); RSV by PCR Negative (Neg); SARS CoV2 RNA(COVID-19) InHosp NEGATIVE (Negative)
--- NOTE | 2021-11-17 16:30 | XRay Report ---
XR chest 1V portable CLINICAL HISTORY: Shortness of breath. COMPARISON STUDY: Chest radiograph February 26, 2018. PET/CT October 11, 2015. FINDINGS: There is no pneumothorax. Small right and trace left pleural effusions are present. Postope rative findings within the right lung are present. Interstitial thickening favors mild pulmonary fang a. There is a 3.1 cm masslike opacity within the left midlung. Possible additional 3 cm nodular opaci ty within the left mid to upper lung is noted. IMPRESSION: 1. Several nodular opacities within the left lung, as described above. These may be neoplastic. Nonem ergent chest CT is recommended. 2. Small right and trace left pleural effusions. Suspected mild interstitial pulmonary edema. ACT 112: Positive. There are findings on this exam that require communication between the performing entity and the patient following Patient Test Result Information Act ([place] Act 112) guidelines. Electronically signed by: Mynor Mariscal M.D. 11/17/2021 4:28 PM
[2021-11-17] MEDS ORDERED: FUROSEMIDE 40 MG/4 ML VIAL IV ONE (16:41)
[2021-11-17] MEDS ORDERED: ALBUT/IPRATROP 3MG/0.5MG NEB 3 ML VIAL NEB STA (16:41)
--- NOTE | 2021-11-17 17:00 | History & Physical Report ---
Date of Service November 17, 2021 Assessment & Plan (1) Atrial fibrillation with RVR: Plan: -Admit to med/tele -Patient is currently afebrile, hemodynamically stable, and stable on RA -Etiology and duration of afib unknown at this time, patient has multiple risk factors -HR currently in the low 100's, likely due to her COPD exacerbation as well -Will obtain TSH and TTE for further workup -Patient not on anticoagulation prior and high risk for PE, stable renal fun ction, will obtain CTA of the chest to monitor for PE and further evaluate pulmonary nodules -Patient and her daughter would like to start anticoagulation after risks and benefits discussion, will start on heparin drip for now -Continue BID metoprolol tartrate 25 mg PO -Will add prn IV lopressor for HR control -Monitor AM CBC and BMP (2) Acute exacerbation of chronic obstructive airways disease: Plan: -Patient is very non-compliant with medications, was not on any breathing treatments and was still smoking up until 1-2 weeks ago when her cough worsened -Currently stable on RA -Multiple possible etiologies for exacerbation including poor medical compliance, smoking, current pulmonary nodules, and possible infectious etiology -Lower suspicion for infectious etiology at this time as she is without leukocytosis, fever, and negative procal. -Will treat as a typical exacerbation at this time with scheduled DuoNebs, 40 mg PO prednisone daily x 5 days, and Doxycycline for now -Monitor on tele and pulse oximetry, prn O2 for SpO2 less than 89 % as target O2 should be 89-92% -Will follow-up on CTA of the chest (3) Elevated troponin I level: Plan: -Noted to be 67.6 on arrival, patient denies chest pain -Will trend another and monitor on tele for now -If significant elevation will continue to trend overnight and repeat ECG (4) Thrombocytosis: Plan: -Platelet count today noted to be 549, no other major abnormalities noted on the CBC, liver function WNL -At this time would think this is more reactive from her possible malignancy and COPD -Will add on peripheral smear to help with evaluation (5) Acute hyponatremia: Plan: -Noted to be 123 in the ED, patient is asymptomatic -Per history, patient has a poor appetite and does not eat or drink much, is not on diuretics prior to arrival. Patient could very well have a component of SIADH with possible cancer and COPD exacerbation -Was given 40 mg IV lasix in the ED prior to admission for signs of pulmonary edema and pleural effusions on chest xray -Will obtain serum osmolality and urine osmolality to start the workup -Start a regular diet but with a NO FREE WATER placed in the order -Will repeat a BMP at 8pm to ensure she is not overcorrecting too quickly (6) Hypertension: Plan: -Hemodynamically stable -Continue metoprolol and telmisartan (7) Pulmonary nodules: Plan: -Hx of lung cancer and currently smoking -Getting CTA for further evaluation (8) H/O carotid endarterectomy: Plan: -Continue aspirin Plan The patient was discussed with Dr. Jolley at the time of admission History of Present Illness Chief Complaint: SOB Primary Care Provider: Ekta Molina DO [place] is an 86 year old female with a PMH significant for current tobacco use, COPD, anxiety, HTN, carotid artery stenosis S/P left endarterectomy, and previous lung lung cancer S/P right middle lobectomy in 2017 who presented to the [facility] ED on 11/17/21 with a chief complaint of SOB. At the time of the exam the patient was resting in bed currently receiving a breathing treatment with her daughter sitting bedside. History was obtained from both the patient and her daughter. They state that the patient has a baseline smoker's cough but over the past few weeks it has been worse. She has had increased sputum production but is unsure of the color of her sputum. She denies recent fevers, chills, chest pain, lightheadedness, dizziness, and recent falls. Her daughter says that the patient is very stubborn and often non-compliant with medications. Her daughter states that the patient has refused breathing treatments for her COPD in the past because she is stubborn. She has been smoking since she was 19 but has not been able to smoke over the past few weeks because her cough has been so bad. When asked, the patient and her daughter denies a history of afib, the patient thinks that she has felt heart palpitations over the past few weeks but is not entirely sure. I asked them about her previous lung cancer diagnosis. They state that she had a previous right middle lobectomy in 2017 for lung cancer. Her daughter states they were told it was lung cancer but she is not sure what kind. Her daughter states they were clearly told it was cancer. When I asked if she ever received chemotherapy or radiation therapy they told me that they were told she did not need either. When asked about her diet, her daughter states that she does not eat very well. She elaborated by saying that when the patient is at home, by herself, she does not eat or drink much. But when she is at her daughter's house she will eat well because her daughter cooks for her. They confirm that the patient is not currently on a diuretic. I spoke to them regarding the pulmonary nodules found on chest xray today. I explained that with her cancer history and smoking history there is a high risk for lung cancer, she and her daughter acknowledged understanding. I explained that we will get a CTA of her chest to rule out PE and get a better picture of the nodules to help form a plan moving forward. I explained to them that with her new onset afib we will continue a workup to find the cause, she has multiple different risk factors. I explained that she is a high risk for both stroke and bleeding if we would start anticoagulation. She and her daughter confirmed that she is not a fall risk and does not have a history of major bleeding. After discussing the risks and benefits the patient and her daughter would like to proceed with anticoagulation at this time. We discussed code status, they explained that the patient is a DNR/DNI and her daughter would make decisions for her if she could not make them herself. In the ED the patient was found to be afebrile, hemodynamically stable, and stable on room air. The patient's HR was controlled after breathing treatments and better respiratory status. Labs were remarkable for normal white count, platelet count of 549, ESR of 96, pH on VBG of 7.42, sodium of 123, chloride of 89, lactate of 1.2, CRP of 8.28, procal of < 0.05, and negative covid, influenza, and RSV PCR. Chest xray shows "Several nodular opacities within the left lung, as described above. These may be neoplastic. Nonemergent chest CT is recommended. Small right and trace left pleural effusions. Suspected mild interstitial pulmonary edema.". In the ED the patient was given DuoNeb treatments, and 40 mg IV lasix. Allergies Allergy/AdvReac Type Severity Reaction Status Date / Time penicillin G Allergy Intermediate HIVES,RASH Verified 11/17/21 16:13 Sulfa (Sulfonamide Allergy Intermediate Hives Verified 11/17/21 16:13 Antibiotics) codeine AdvReac Severe HALLUCINATI Verified 11/17/21 16:13 ONS Home Medications Medication Instructions Recorded Confirmed Type aspirin 81 mg tablet,delayed 81 mg PO DAILY 02/26/18 11/17/21 History release escitalopram oxalate 5 mg tablet 5 mg PO DAILY 02/26/18 11/17/21 History lorazepam 0.5 mg tablet 0.5 mg PO BID PRN Anxiety 02/26/18 11/17/21 History azithromycin 500 mg tablet 500 mg PO DIRECTED PRN PRIOR TO 11/17/21 11/17/21 History DENTAL APPT. cetirizine 10 mg tablet (All Day 10 mg PO DAILY 11/17/21 11/17/21 History Allergy (cetirizine)) cholecalciferol (vitamin D3) 25 25 mcg PO DAILY 11/17/21 11/17/21 History mcg (1,000 unit) capsule (Vitamin D3) simethicone 80 mg chewable tablet 80 mg PO DIRECTED PRN 11/17/21 11/17/21 History BLOATING/GAS DISCOMFORT telmisartan 80 mg tablet 80 mg PO DAILY 11/17/21 11/17/21 History apixaban 2.5 mg tablet (Eliquis) 2.5 mg PO BID #60 tabs 11/21/21 Rx doxycycline hyclate 100 mg capsule 100 mg PO BID #3 caps 11/21/21 Rx metoprolol tartrate 25 mg tablet 37.5 mg PO BID 1 month #90 tabs 11/21/21 Rx Past Med/Surg History Medical History (Updated 11/19/21 @ 17:21 by Ana Maria Cervantes MD) Contusion of rib on right side Fall Lung cancer Social History Smoking Status: Current every day smoker Hx Alcohol Use: No Hx Substance Use: No Preferred Language: Occitan Communication Ability: Effective Ward Helper Required: No Beliefs That Will Affect Care: None Current Living Situation: Alone Feels Safe at Home: Yes Assistive Devices: Cane and Walker Review of Systems Review of Systems: Denies current fever, chills, headache, changes in vision, hearing, taste, and smell, chest pain, abdominal pain, nausea, vomiting, diarrhea, hematemesis, melena, dysuria, hematuria, and recent falls. All systems have been reviewed and are otherwise negative. Physical Exam Physical Exam: Physical Exam: General: In no acute distress, stated age, non-toxic appearing, chronically ill-appearing HEENT: Normocephalic, atraumatic, no scleral icterus, pupils around round, symmetrical, and reactive to light, moist mucus membranes, trachea midline, no thyromegaly Chest/Pulm: No respiratory distress, coughing frequently, symmetrical chest expansion, scattered rhonchi with BL expiratory wheezing throughout Cardiac: irregular rate and rhythm, systolic murmur noted Abdomen: Negative for ascites and bruising, normoactive bowel sounds, soft, non-tender to palpation throughout Musculoskeletal: Symmetrical and without signs of acute trauma, upper and lower extremities with full ROM, no atrophy, spasticity, or flaccidity Extremities: Radial, dorsalis pedis, and posterior tibial pulses are intact and symmetrical, no edema noted in the BL LE's Skin: Warm, dry, no rashes , lesions, or scars noted Neuro: Alert and oriented to person, place, month, year, and president, no focal defects, CN II-XII tested and intact, finger to nose test negative, no tremors noted Psych: No acute distress, calm and cooperative during the exam Results & Data Results & Data ([facility]) Vital Signs (Past 12 Hours) Vital Signs Temp Pulse Pulse Resp BP BP Pulse Ox 11/17/21 16:49 101 H 18 144/56 H 92 11/17/21 16:04 103 H 18 144/80 H 92 11/17/21 14:44 106 H 20 153/76 H 93 11/17/21 14:18 109 H 20 148/85 H 96 11/17/21 13:21 91 11/17/21 12:52 36.9 C 125 H 24 133/56 L 91 O2 Del Method O2 Flow Rate 11/17/21 16:49 Room Air 11/17/21 16:04 Room Air 11/17/21 14:44 Room Air 11/17/21 14:18 Nasal Cannula 2 11/17/21 13:21 Nasal Cannula 0 11/17/21 12:52 Room Air Laboratory Results Abnormal lab results 11/17/21 11/17/21 11/17/21 Range/Units 14:00 14:00 14:00 Plt Count 549 H (130-400) K/uL MPV 8.7 L (9.4-12.3) fL Lymph # (Auto) 0.71 L (1.2-3.4) K/uL Immature Gran # (Auto) 0.03 H (0.00-0.02) K/uL ESR (0-30) mm/hr APTT 31.3 H (21.0-31.0) Seconds VBG pH (7.36-7.41) Sodium 123 L (136-145) mmol/L Chloride 89 L (98-107) mmol/L Glucose 110 H (70-99(Fasting)) mg/dl Osmolality (280-300) mOsm/kg AST 11 L (13-39) U/L ALT 4 L (7-52) U/L Troponin I High Sens 67.6 H* (0-14) pg/ml C-Reactive Protein 8.28 H (0-0.5) mg/dl 11/17/21 11/17/21 11/17/21 Range/Units 14:00 14:00 14:53 Plt Count (130-400) K/uL MPV (9.4-12.3) fL Lymph # (Auto) (1.2-3.4) K/uL Immature Gran # (Auto) (0.00-0.02) K/uL ESR 96 H (0-30) mm/hr APTT (21.0-31.0) Seconds VBG pH 7.42 H (7.36-7.41) Sodium (136-145) mmol/L Chloride (98-107) mmol/L Glucose (70-99(Fasting)) mg/dl Osmolality 271 L (280-300) mOsm/kg AST (13-39) U/L ALT (7-52) U/L Troponin I High Sens (0-14) pg/ml C-Reactive Protein (0-0.5) mg/dl Diagnostic Findings Chest X-Ray 11/17/21 13:31 XR chest 1V portable CLINICAL HISTORY: Shortness of breath. COMPARISON STUDY: Chest radiograph February 26, 2018. PET/CT October 11, 2015. FINDINGS: There is no pneumothorax. Small right and trace left pleural effusions are present. Postoperative findings within the right lung are present. Interstitial thickening favors mild pulmonary edema. There is a 3.1 cm masslike opacity within the left midlung. Possible additional 3 cm nodular opacity within the left mid to upper lung is noted. IMPRESSION: 1. Several nodular opacities within the left lung, as described above. These may be neoplastic. Nonemergent chest CT is recommended. 2. Small right and trace left pleural effusions. Suspected mild interstitial pulmonary edema. ACT 112: Positive. There are findings on this exam that require communication between the performing entity and the patient following Patient Test Result Information Act ([place] Act 112) guidelines. Electronically signed by: Mynor Mariscal M.D. 11/17/2021 4:28 PM ECG Additional Comments: Poor data quality, interpretation may be adversely affected Atrial fibrillation with rapid ventricular response Incomplete left bundle block Abnormal ECG When compared with ECG of 26-FEB-2018 16:00, Atrial fibrillation has replaced Sinus rhythm Confirmed by Carlyle Gonsalez ([id number]) on 11/17/2021 5:01 :25 PM Code Status & VTE Plan Code Status DNR/DNI VTE Prophylaxis Plan VTE Prophylaxis will be ordered: Yes Supervising Physician Co-Signing Physician Notes Patient seen and examined at bedside, during face to face encounter obtained a history and physical examination. I discussed plan of care with APC Zaco and patient. I reviewed above note and agree with it. Patient being admitted with atrial fibrillation and COPD exacerbation. will increase beta radha. Place on rescue inhalers and continue prednisone. PG Care Time/CCT Total # of Minutes Spent Total Time Spent with Patient: Total time spent is greater than 50% in coordination of care (as documented) at patient's floor/unit and/or counseling patient: C[place] [address] Initial Inpt Care Lvl 3 Patient Type Established Medical Decision Making High Complexity Diagnoses Atrial fibrillation with RVR I48.91 Acute exacerbation of chronic obstructive airways disease J44.1 Elevated troponin I level R77.8 Thrombocytosis D75.839 Acute hyponatremia E87.1 Hypertension I10 Pulmonary nodules R91.8 H/O carotid endarterectomy Z98.890
--- NOTE | 2021-11-17 17:01 | Electrocardiogram Report ---
Test Reason : Blood Pressure : / mmHG Vent. Rate : 109 BPM Atrial Rate : 086 BPM P-R Int : 000 ms QRS Dur : 118 ms QT Int : 358 ms P-R-T Axes : 000 004 130 degrees QTc Int : 482 ms Poor data quality, interpretation may be adversely affected Atrial fibrillation with rapid ventricular response Incomplete left bundle block Abnormal ECG When compared with ECG of 26-FEB-2018 16:00, Atrial fibrillation has replaced Sinus rhythm Confirmed by Carlyle Gonsalez ([id number]) on 11/17/2021 5:01:25 PM Referred By: Confirmed By:Carlyle Gonsalez
[2021-11-17] MEDS ORDERED: DOXYCYCLINE HYCLATE 100 MG CAP PO ONE (17:45)
[2021-11-17] MEDS ORDERED: predniSONE 20 MG TAB PO ONE (17:45)
[2021-11-17 18:26] LABS: Appearance Urine Clear (Clear); Bacteria Urine Automated Negative (Negative); Bilirubin Urine Negative (Negative); Blood Urine Negative (Negative); Color Urine Yellow; Glucose Urine UA Negative (Negative); Ketones Urine Negative (Negative); Leukocyte Esterase Urine Negative (Negative); Nitrite Urine Negative (Negative); Protein Urine 1+ (Negative); RBC Urine Automated 0-4 /hpf (0-4); Specific Gravity Urine 1.007 (1.000-1.030); Urobilinogen Urine Negative (Negative)
[2021-11-17] MEDS ORDERED: METOPROLOL TARTRATE 25 MG TAB PO ONE (18:45)
[2021-11-17] MEDS ORDERED: ASPIRIN CHEW 324 MG PO STA ×2 (19:00→20:51)
[2021-11-17] MEDS ORDERED: IOVERSOL 350 MG 100mL Prefilled Syringe IV ONE (19:11)
[2021-11-17] MEDS ORDERED: ACETAMINOPHEN 325 MG TAB PO PRN (19:28)
[2021-11-17] MEDS ORDERED: METOPROLOL TARTRATE 1 MG/ML VIAL IV PRN (19:28)
[2021-11-17 20:28] LABS: BUN Creatinine Ratio 20.7 (10-20); Calcium 9.1 mg/dl (8.5-10.1); Creatinine Clr Calc Pharmacy 48.4 ml/min; Est GFR (African American) 97.4 ml/min; Potassium 3.5 mmol/L (3.5-5.1)
--- NOTE | 2021-11-17 20:31 | CT Scan Report ---
CT ANGIOGRAPHY OF THE CHEST, PULMONARY EMBOLUS PROTOCOL CLINICAL HISTORY: Shortness of breath. Evaluate for pulmonary embolus and pulmonary nodules. COMPARISON STUDY: Chest CT September 16, 2015. PET/CT October 11, 2015. Chest radiograph performed raven hemphill. TECHNIQUE: Following IV administration of 90 mL of Optiray, helical axial images of the chest were ob tained utilizing the pulmonary embolus protocol. Maximal intensity projections and sagittal and shazia nal reformats were viewed on an independent 3D workstation. IV contrast was administered without com plication. Automated exposure control was utilized for the study. A dose lowering technique was uti lized adhering to the principles of ALARA. CT DOSE: 262.24 mGy.cm FINDINGS: No pulmonary emboli are identified. There is no thoracic aortic dissection. Mild cardiomeg yamile is noted. Coronary artery calcification is present. Mediastinal lymphadenopathy has developed sin ce CT of September 16, 2015 and PET/CT of October 11, 2015. Subcarinal lymph node measures 3.5 x 2.6 cm. A P window node measures 2.8 x 1.9 cm. There is no pneumothorax. There are postoperative findings withi n the right lung. Note is made of a spiculated 3.4 x 2.2 cm subpleural left lower lobe mass on image 130 of 288. There is also a 4.9 x 3.7 cm masslike density within the posterior basal segment of the l eft lower lobe on axial image 98. Nodular interlobular septal thickening within the left lower lobe i s present. There is a lobulated 3.1 x 2 cm left upper lobe mass with cystic spaces on axial image 176 of 288. Smaller suspected satellite nodule measuring 9 mm within the left lower lobe on image 112 is noted. A 7 mm lytic focus within the posterior T3 vertebral body is new since prior exam. There is a T11 compression deformity which is likely old. Masslike thickening of the left adrenal gland is note d. This measures 4 cm and is new since prior PET/CT. There is a 1.7 cm right hepatic lobe lesion, als o new since prior PET/CT. IMPRESSION: 1. 3.4 x 2.2 cm subpleural left lower lobe mass suggestive of primary bronchogenic carcinoma. 3.1 x 2 cm lobulated left upper lobe mass with cystic spaces which is also neoplastic. 2. 4.9 x 3.7 cm masslike density within the posterior basal segment of the left lower lobe. This coul d be neoplastic or represent pneumonia. 3. Interval development of mediastinal lymphadenopathy consistent with miya spread of disease. 4. Irregular left lower lobe interlobular septal thickening suggestive of lymphangitic spread of tumo r. 5. 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 6. No pulmonary emboli identified. 7. Postoperative findings within the right middle lobe. ACT 112: Positive. There are findings on this exam that require communication between the performing entity and the patient following Patient Test Result Information Act ([place] Act 112) guidelines. Electronically signed by: Mynor Mariscal M.D. 11/17/2021 8:28 PM
[2021-11-17] MEDS: HEPARIN SODIUM/DEXTROSE 25,000 UNITS/500 ML BAG IV SCH (20:35)
[2021-11-17] MEDS: Heparin IV Adult Wt-Based Standard *NO* Bolus Protocol IV SCH ×3 (20:48→23:05)
[2021-11-17] MEDS ORDERED: ALBUT/IPRATROP 3MG/0.5MG NEB 3 ML VIAL NEB SCH (21:00)
[2021-11-17] MEDS: METOPROLOL TARTRATE 25 MG TAB PO SCH (23:37)
[2021-11-18 05:04] LABS: Partial Thromboplastin Ratio 1.9
[2021-11-18 05:33] LABS: Partial Thromboplastin Time 51.6 Seconds (21.0-31.0)
[2021-11-18] MEDS: ASPIRIN 81 MG ECTAB PO SCH (07:36)
[2021-11-18] MEDS: DOXYCYCLINE HYCLATE 100 MG CAP PO SCH ×2 (07:36→19:56)
[2021-11-18] MEDS: ESCITALOPRAM OXALATE 10 MG TAB PO SCH (07:37)
[2021-11-18] MEDS: METOPROLOL TARTRATE 25 MG TAB PO SCH ×2 (07:37→19:55)
[2021-11-18] MEDS: predniSONE 20 MG TAB PO SCH (07:38)
[2021-11-18] MEDS: TELMISARTAN 40 MG TAB PO SCH (07:38)
--- NOTE | 2021-11-18 08:05 | Pulmonary Consultation ---
Date of Consultation November 18, 2021 Assessment & Plan (1) LAD (lymphadenopathy), mediastinal: (2) Lung cancer: (3) Pulmonary mass: (4) Normal chest CT: Plan CT chest 11/17/2021 personally reviewed: Centrilobular emphysema appreciated bilaterally Left upper lobe 2 cm x 3.1 cm opacity, left lower lobe 3.4 cm x 2.2 cm pulmonary mass with another 4.9 x 3.7 cm pulmonary mass distal to it Significant mediastinal lymphadenopathy at station 7 and 4L -- Pulmonary mass with mediastinal lymphadenopathy The possibility of it being lung cancer is very high Patient also seem to have metastasis in the liver -- History of lung cancer in the past S/p right middle lobectomy Patient did not get any chemo or radiation --COPD with emphysema Consider starting Incruse on a daily basis Plan: I did speak with patient's daughter Floridalma on the phone I discussed the finding on the CAT scan and the possibility of it being lung cancer and already spreading to the liver. I gave the option of doing biopsy of the liver lesion if she and her mother wants to pursue a diagnosis As per the daughter, patient does not want anything to be done even when it comes to colonoscopy and mammograms. In the light of patient wishes right now I will think the next best approach would be palliative care. What ever malignancy with the patient has is most likely going to progress, it is hard to ascertain how fast that is going to be. I did address CODE STATUS with patient's daughter as well. Patient does have a POLST form at home which she is going to bring in. All questions inquiries of the patient's daughter were answered in depth If the patient's daughter do change her mind and want to pursue diagnosis then liver biopsy would be the next No further recommendation for pulmonary perspective. We will sign off. Please call directly with any questions Case was discussed with Dr. Razo and Dr Jolley Please note the above document was generated using voice recognition software. It may contain grammatical, syntax or spelling errors.Any formal questions or concerns about the content, text or information contained within the body of this dictation should be directly addressed to the provider for clarification. History of Present Illness Attending Physician: Waldo Jolley History of Present Illness 86-year-old female present to the hospital with shortness of breath, was found to be in A. fib with RVR Past medical history: COPD, history of lung cancer s/p right middle lobectomy in 2017, anxiety, hypertension Patient had a CTA chest done which showed pulmonary mass with possible liver mets, pulmonary consulted for the same At the time of examination patient was resting comfortably on the bed. She was asking to go home. Denies any headache, no blurry vision She was saturating 91-92% on room air. Denies any nausea or vomiting. No cough. She has lost some weight in the recent past. She is not able to tell me how much. No dysuria, diarrhea Occasional cough with clear phlegm, no hemoptysis. Social history: Used to be heavy smoker, approximately 7-8 years ago. Allergies Allergy/AdvReac Type Severity Reaction Status Date / Time penicillin G Allergy Intermediate HIVES,RASH Verified 11/17/21 16:13 Sulfa (Sulfonamide Allergy Intermediate Hives Verified 11/17/21 16:13 Antibiotics) codeine AdvReac Severe HALLUCINATI Verified 11/17/21 16:13 ONS Home Medications Medication Instructions Recorded Confirmed Type aspirin 81 mg tablet,delayed 81 mg PO DAILY 02/26/18 11/17/21 History release escitalopram oxalate 5 mg tablet 5 mg PO DAILY 02/26/18 11/17/21 History lorazepam 0.5 mg tablet 0.5 mg PO BID PRN Anxiety 02/26/18 11/17/21 History metoprolol tartrate 25 mg tablet 25 mg PO BID 02/26/18 11/17/21 History azithromycin 500 mg tablet 500 mg PO DIRECTED PRN PRIOR TO 11/17/21 11/17/21 History DENTAL APPT. cetirizine 10 mg tablet (All Day 10 mg PO DAILY 11/17/21 11/17/21 History Allergy (cetirizine)) cholecalciferol (vitamin D3) 25 25 mcg PO DAILY 11/17/21 11/17/21 History mcg (1,000 unit) capsule (Vitamin D3) simethicone 80 mg chewable tablet 80 mg PO DIRECTED PRN 11/17/21 11/17/21 History BLOATING/GAS DISCOMFORT telmisartan 80 mg tablet 80 mg PO DAILY 11/17/21 11/17/21 History Patient History Medical History (Updated 11/18/21 @ 13:15 by Krissy Barrios MD, FCCP) Contusion of rib on right side Fall Lung cancer Social History Smoking Status: Current every day smoker Do You Dip or Chew Tobacco: No; Tobacco Cessation Education Requested by Patient: No Hx Alcohol Use: No Hx Substance Use: No Preferred Language: Tajik Communication Ability: Effective Drum Tester Required: No Beliefs That Will Affect Care: None Current Living Situation: Alone Feels Safe at Home: Yes Safety Concerns: Feels Safe At This Time Assistive Devices: Cane Review of Systems Review of Systems: All systems reviewed & are unremarkable except as noted in HPI & below Physical Exam Physical Exam: Constitutional: No acute distress HEENT: EOMI, PERRLA Respiratory system: Decreased air entry bilaterally, no wheeze, no rhonchi, positive crackles bilateral lower lobes CVS: S1-S2 positive, no murmurs or gallops Abdomen: Soft, nontender, nondistended, positive bowel sounds x4 Extremities: +2 pulses bilaterally radialis/ dorsalis pedis, no cyanosis, no e kiarra Neuro: Awake alert oriented self and place Psych: Normal mood and affect G/U: No Malcolm Skin: no rashes, warm and dry Lymphatic: no cervical or axillary lymphadenopathy Results & Data Results & Data ([facility]) Vital Signs (Past 12 Hours) Vital Signs Temp Pulse Pulse Pulse Resp BP Pulse Ox 11/18/21 07:34 36.6 C 95 H 20 188/70 H 91 11/18/21 06:55 91 H 11/18/21 00:04 82 11/17/21 23:47 36.6 C 86 18 164/63 H 91 11/17/21 20:07 110 H 16 98 O2 Del Method 11/18/21 07:34 Room Air 11/18/21 06:55 11/18/21 00:04 11/17/21 23:47 Room Air 11/17/21 20:07 Room Air Laboratory Results 11/17/21 14:00 11/17/21 19:56 PG Care Time/CCT Total # of Minutes Spent Total Time Spent with Patient: Total time spent is greater than 50% in coordination of care (as documented) at patient's floor/unit and/or counseling patient: Coding Level of Care Code 14791 Initial Inpt Care Lvl 3 Diagnoses LAD (lymphadenopathy), mediastinal R59.0 Lung cancer C34.90 Pulmonary mass R91.[address]
--- NOTE | 2021-11-18 09:45 | Oncology Consultation ---
Date of Consultation November 18, 2021 Assessment & Plan (1) Pulmonary nodules: Likely recurrent lung cancer (2) Liver lesion: Likely due to metastatic lung cancer (3) Lung cancer: S/p right lobectomy in 2017 Plan 86-year-old female with history of right lung cancer for which she is s/p right lobectomy in 2017. She presented with shortness of breath and was found to have atrial fibrillation with RVR. Imaging findings are concerning for metastatic lung cancer. Discussed my thoughts with patient. Recommended biopsy of either lung mass or liver lesions to confirm recurrent disease as well as metastasis.C auses of autoimmune hemolytic anemia including CTA chest obtained on 11/17/2021 also recommended full staging work-up with CT abdomen and pelvis as well as brain MRI. Patient however indicated that she has lived a good life and would not want treatment, biopsies or further imaging. As such, would recommend evaluation by palliative care. If patient changes her mind, would be happy to see her as an outpatient to discuss biopsy results as well as imaging findings. Oncology will sign off at this time. Please feel free to call if you have any further questions History of Present Illness Reason for Consultation: Suspected metastatic lung cancer Attending Physician: Waldo Jolley History of Present Illness Ms. Fink is a pleasant 86-year-old female with history of right lung cancer for which she s/p lobectomy in 2017. Patient presented with shortness of breath and was found to be in atrial fibrillation with RVR. CTA chest obtained on 11/17/2021 revealed 3.4 x 2.2 cm subpleural left lower lobe mass suggestive of primary bronchogenic carcinoma, 3.1 x 2 cm lobulated left upper lobe mass with cystic spaces, 4.9 x 3.7 cm masslike density within the posterior basal segment of the left lower lobe, Interval development of mediastinal lymphadenopathy consistent with miya spread of disease, Irregular left lower lobe interlobular septal thickening suggestive of lymphangitic spread of tumor as well as suspect ed left adrenal and right hepatic lobe metastases. During my evaluation of patient today, she complained of more than 20 pounds weight loss, occasional shortness of breath and occasional cough. Has been smoking cigarettes since the age of 19. Allergies Allergy/AdvReac Type Severity Reaction Status Date / Time penicillin G Allergy Intermediate HIVES,RASH Verified 11/17/21 16:13 Sulfa (Sulfonamide Allergy Intermediate Hives Verified 11/17/21 16:13 Antibiotics) codeine AdvReac Severe HALLUCINATI Verified 11/17/21 16:13 ONS Home Medications Medication Instructions Recorded Confirmed Type aspirin 81 mg tablet,delayed 81 mg PO DAILY 02/26/18 11/17/21 History release escitalopram oxalate 5 mg tablet 5 mg PO DAILY 02/26/18 11/17/21 History lorazepam 0.5 mg tablet 0.5 mg PO BID PRN Anxiety 02/26/18 11/17/21 History metoprolol tartrate 25 mg tablet 25 mg PO BID 02/26/18 11/17/21 History azithromycin 500 mg tablet 500 mg PO DIRECTED PRN PRIOR TO 11/17/21 11/17/21 History DENTAL APPT. cetirizine 10 mg tablet (All Day 10 mg PO DAILY 11/17/21 11/17/21 History Allergy (cetirizine)) cholecalciferol (vitamin D3) 25 25 mcg PO DAILY 11/17/21 11/17/21 History mcg (1,000 unit) capsule (Vitamin D3) simethicone 80 mg chewable tablet 80 mg PO DIRECTED PRN 11/17/21 11/17/21 History BLOATING/GAS DISCOMFORT telmisartan 80 mg tablet 80 mg PO DAILY 11/17/21 11/17/21 History Patient History Medical History (Updated 11/18/21 @ 12:38 by Any Razo MD) Contusion of rib on right side Fall Lung cancer Social History Smoking Status: Current every day smoker Do You Dip or Chew Tobacco: No; Tobacco Cessation Education Requested by Patient: No Hx Alcohol Use: No Hx Substance Use: No Preferred Language: [place] Communication Ability: Effective Shop Teacher Required: No Beliefs That Will Affect Care: None Current Living Situation: Alone Feels Safe at Home: Yes Safety Concerns: Feels Safe At This Time Assistive Devices: Cane Review of Systems Review of Systems: All systems reviewed & are unremarkable except as noted in HPI & below Physical Exam Eyes: PERRL, conjunctivae normal, anicteric sclerae ENMT: external ear and nose normal, oropharynx normal Respiratory: normal respiratory effort Auscultation: lungs clear to auscultation bilaterally Cardiovascular: Rate/Rhythm: + irregularly irregular Musculoskeletal: no cyanosis or clubbing, extremities motor strength 5/5 Results & Data ([facility]) Vital Signs (Past 12 Hours) Vital Signs Temp Pulse Pulse Resp BP Pulse Ox O2 Del Method 11/18/21 08:41 Room Air 11/18/21 07:34 36.6 C 95 H 20 188/70 H 91 Room Air 11/18/21 06:55 91 H 11/18/21 00:04 82 11/17/21 23:47 36.6 C 86 18 164/63 H 91 Room Air
[2021-11-18 10:05] LABS: Hematocrit (blood only) 32.8 % (34.1-44.9); Hemoglobin 11.4 g/dl (12.0-16.0); Mean Corpuscular Hemoglobin 30.8 pg (25.0-34.0); Mean Corpuscular Hgb Conc 34.8 g/dL (32.0-36.0); Mean Corpuscular Volume 88.6 fL (80.0-100.0); Mean Platelet Volume 8.6 fL (9.4-12.3); Platelet Count 536 K/uL (130-400); RDW Standard Deviation 39.3 fL (36.4-46.3); White Blood Count 8.77 K/ul (4.8-10.8)
[2021-11-18 11:17] LABS: BUN Creatinine Ratio 26.8 (10-20); Calcium 8.8 mg/dl (8.5-10.1); Creatinine Clr Calc Pharmacy 50.1 ml/min; Est GFR (African American) 98.5 ml/min; Potassium 3.8 mmol/L (3.5-5.1)
[2021-11-18] MEDS: ALBUT/IPRATROP 3MG/0.5MG NEB 3 ML VIAL NEB SCH ×3 (14:20→19:24)
[2021-11-18 19:18] LABS: Anion Gap 10.7 (3-11)
[2021-11-18] MEDS: LORazepam 0.5 MG TAB PO PRN (20:33)
--- NOTE | 2021-11-18 21:07 | Hospitalist Progress Note ---
Date of Service November 18, 2021 Assessment & Plan (1) Atrial fibrillation with RVR: Plan: -Admit to med/tele -Patient is currently afebrile, hemodynamically stable, and stable on RA -Etiology and duration of afib unknown at this time, patient has multiple risk factors -HR currently in the low 100's, likely due to her COPD exacerbation as well -Will obtain TSH and TTE for further workup -Patient not on anticoagulation prior and high risk for PE, stable renal fun ction, will obtain CTA of the chest to monitor for PE and further evaluate pulmonary nodules -Patient and her daughter would like to start anticoagulation after risks and benefits discussion, will start on heparin drip for now -Continue BID metoprolol tartrate 25 mg PO -Will add prn IV lopressor for HR control -will increase beta radha in AM to help manage heart rate. It appears family and patient is leaning towards hospice as no intervention (2) Acute exacerbation of chronic obstructive airways disease: Plan: -Patient is very non-compliant with medications, was not on any breathing treatments and was still smoking up until 1-2 weeks ago when her cough worsened -Currently stable on RA -Multiple possible etiologies for exacerbation including poor medical compliance, smoking, current pulmonary nodules, and possible infectious etiology -Lower suspicion for infectious etiology at this time as she is without leukoc ytosis, fever, and negative procal. -Will treat as a typical exacerbation at this time with scheduled DuoNebs, 40 mg PO prednisone daily x 5 days, and Doxycycline for now -Monitor on tele and pulse oximetry, prn O2 for SpO2 less than 89 % as target O2 should be 89-92% -Will follow-up on CTA of the chest (3) Elevated troponin I level: Plan: -Noted to be 67.6 on arrival, patient denies chest pain -trop is trending down. (4) Thrombocytosis: Plan: -Platelet count today noted to be 549, no other major abnormalities noted on the CBC, liver function WNL -At this time would think this is more reactive from her possible malignancy and COPD -Will add on peripheral smear to help with evaluation -platelet are down trending. (5) Acute hyponatremia: Plan: -Noted to be 123 in the ED, patient is asymptomatic -Per history, patient has a poor appetite and does not eat or drink much, is not on diuretics prior to arrival. Patient could very well have a component of SIADH with possible cancer and COPD exacerbation -Was given 40 mg IV lasix in the ED prior to admission for signs of pulmonary edema and pleural effusions on chest xray -Will obtain serum osmolality and urine osmolality to start the workup -Start a regular diet but with a NO FREE WATER placed in the order -sodium has improved. will monitor. (6) Hypertension: Plan: -Hemodynamically stable -Continue metoprolol and telmisartan (7) Pulmonary nodules: Plan: -Hx of lung cancer and currently smoking -Getting CTA for further evaluation (8) H/O carotid endarterectomy: Plan: -Continue aspirin Admission and Anticipated Discharge Date Admission Date: November 17, 2021 Subjective Patient is pleasant. Has no new complaints. She does not want any intervention done. Review of Systems Review of Systems: All systems reviewed & are unremarkable except as noted in HPI & below Physical Exam Physical Exam: General: In no acute distress, stated age, non-toxic appearing, chronically ill-appearing HEENT: Normocephalic, atraumatic, no scleral icterus, pupils around round, symmetrical, and reactive to light, moist mucus membranes, trachea midline, no thyromegaly Chest/Pulm: No respiratory distress, coughing frequently, symmetrical chest expansion, scattered rhonchi with BL expiratory wheezing throughout Cardiac: irregular rate and rhythm, systolic murmur noted Abdomen: Negative for ascites and bruising, normoactive bowel sounds, soft, non- tender to palpation throughout Musculoskeletal: Symmetrical and without signs of acute trauma, upper and lower extremities with full ROM, no atrophy, spasticity, or flaccidity Extremities: Radial, dorsalis pedis, and posterior tibial pulses are intact and symmetrical, no edema noted in the BL LE's Skin: Warm, dry, no rashes , lesions, or scars noted Neuro: Alert and oriented to person, place, month, year, and president, no focal defects, CN II-XII tested and intact, finger to nose test negative, no tremors noted Psych: No acute distress, calm and cooperative during the exam Results & Data Results & Data ([facility]) Vital Signs (Past 12 Hours) Vital Signs Pulse Pulse Resp Pulse Ox O2 Del Method FiO2 11/18/21 19:24 105 H 16 96 Room Air 11/18/21 16:45 120 H 11/18/21 15:56 98 H 11/18/21 15:47 109 H 15 93 Room Air 21 PG Care Time/CCT Total # of Minutes Spent Total Time Spent with Patient: Total time spent is greater than 50% in coordination of care (as documented) at patient's floor/unit and/or counseling patient: Coding Level of Care Code 18254 Subseq Hosp Care Lvl 2 Diagnoses Atrial fibrillation with RVR I48.91 Acute exacerbation of chronic obstructive airways disease J44.1 Elevated troponin I level R77.8 Thrombocytosis D75.839 Acute hyponatremia E87.1 Hypertension I10 Pulmonary nodules R91.8 H/O carotid endarterectomy Z98.890
[2021-11-19] MEDS: HEPARIN SODIUM/DEXTROSE 25,000 UNITS/500 ML BAG IV SCH ×2 (01:11→20:10)
[2021-11-19 05:17] LABS: Partial Thromboplastin Ratio 1.6; Partial Thromboplastin Time 44.2 Seconds (21.0-31.0)
[2021-11-19] MEDS: ALBUT/IPRATROP 3MG/0.5MG NEB 3 ML VIAL NEB SCH ×4 (06:53→20:01)
[2021-11-19] MEDS: ESCITALOPRAM OXALATE 10 MG TAB PO SCH (07:55)
[2021-11-19] MEDS: ASPIRIN 81 MG ECTAB PO SCH (07:55)
[2021-11-19] MEDS: DOXYCYCLINE HYCLATE 100 MG CAP PO SCH ×2 (07:55→20:13)
[2021-11-19] MEDS: TELMISARTAN 40 MG TAB PO SCH (07:56)
[2021-11-19] MEDS: predniSONE 20 MG TAB PO SCH (07:56)
[2021-11-19] MEDS: METOPROLOL TARTRATE 25 MG TAB PO SCH ×2 (08:45→20:11)
[2021-11-19 11:53] LABS: Hematocrit (blood only) 33.4 % (34.1-44.9); Hemoglobin 11.7 g/dl (12.0-16.0); Mean Corpuscular Hemoglobin 30.9 pg (25.0-34.0); Mean Corpuscular Volume 88.1 fL (80.0-100.0); Mean Platelet Volume 8.7 fL (9.4-12.3); Platelet Count 532 K/uL (130-400); RDW Coefficient of Variation 11.9 % (11.5-14.5); RDW Standard Deviation 38.7 fL (36.4-46.3); Red Blood Count 3.79 M/uL (3.93-5.22); White Blood Count 11.11 K/ul (4.8-10.8)
[2021-11-19 12:06] LABS: Partial Thromboplastin Ratio 1.5; Partial Thromboplastin Time 41.1 Seconds (21.0-31.0)
[2021-11-19 12:20] LABS: BUN Creatinine Ratio 23.1 (10-20); Calcium 8.9 mg/dl (8.5-10.1); Creatinine Clr Calc Pharmacy 53.9 ml/min; Est GFR (Non-African American) 87.1 ml/min; Potassium 3.8 mmol/L (3.5-5.1)
--- NOTE | 2021-11-19 17:30 | Palliative Care Consultation ---
Date of Consultation November 19, 2021 Assessment & Plan (1) Dyspnea: on presentation. denies currently (2) Palliative care encounter: I talked with Mrs. Fink about her understanding of her illness. She realizes that she most likely has cancer. She tells me that she knows that she is going to and asks me if I have any idea how long. I explained that without more specific information about her lung masses and presumed metastatic disease, it is difficult to predict but that would likely have a matter of a months without treatment. She told me that her several years ago and had multiple treatments in multiple hospitals and she does not want to go through that. She would prefer to spend her time at home, enjoying time with family. We talked about hospice and support available to help manage symptoms and ensure that she would be able to be at home. She is familiar with hospice but expressed some uncertainty. I asked her what was making her hesitant and she expressed concern about having other people in her home, but then said "that's going to happen anyway". She asked me to speak with her daughter, Floridalma, and stated that she would like to discuss this with Floridalma as well. I spoke to Floridalma on the phone. She has seen a steady decline in her mother's appetite, weight and functional status in the last few months. She was concerned that there might be a malignancy. She tells me that years ago her mother said that she was no longer interested in mammograms or cancer screenings and that she would not pursue treatment if she had cancer. I talked with Floridalma about hospice. Eden would be eligible and would benefit from having support early on, despite being relatively symptom free at this time. She agrees and would like to have hospice care for her mother on discharge. She will talk with Eden about this further. I notified case management who reached out to Floridalma. (3) Pulmonary mass: History of Present Illness Reason for Consultation: goals of care Requesting Physician: Dr. Jolley Attending Physician: Waldo Jolley History of Present Illness 86 yo lady with history of COPD, carotid artery disease and prior history of lung cancer with partial lobectomy. She is a long time smoker. She presented with shortness of breath and chronic cough. SHe is being treated for new onset afib and COPD exacerbation and denies feeling short of breath at time of visit. Unfortunately, during workup she was found to have multiple left pulmonary masses, mediastinal lymphadenopathy and possible liver and adrenal lesions. SHe has been seen by oncology but has declined further workup or treatment. Allergies Allergy/AdvReac Type Severity Reaction Status Date / Time penicillin G Allergy Intermediate HIVES,RASH Verified 11/17/21 16:13 Sulfa (Sulfonamide Allergy Intermediate Hives Verified 11/17/21 16:13 Antibiotics) codeine AdvReac Severe HALLUCINATI Verified 11/17/21 16:13 ONS Home Medications Medication Instructions Recorded Confirmed Type aspirin 81 mg tablet,delayed 81 mg PO DAILY 02/26/18 11/17/21 History release escitalopram oxalate 5 mg tablet 5 mg PO DAILY 02/26/18 11/17/21 History lorazepam 0.5 mg tablet 0.5 mg PO BID PRN Anxiety 02/26/18 11/17/21 History metoprolol tartrate 25 mg tablet 25 mg PO BID 02/26/18 11/17/21 History azithromycin 500 mg tablet 500 mg PO DIRECTED PRN PRIOR TO 11/17/21 11/17/21 History DENTAL APPT. cetirizine 10 mg tablet (All Day 10 mg PO DAILY 11/17/21 11/17/21 History Allergy (cetirizine)) cholecalciferol (vitamin D3) 25 25 mcg PO DAILY 11/17/21 11/17/21 History mcg (1,000 unit) capsule (Vitamin D3) simethicone 80 mg chewable tablet 80 mg PO DIRECTED PRN 11/17/21 11/17/21 History BLOATING/GAS DISCOMFORT telmisartan 80 mg tablet 80 mg PO DAILY 11/17/21 11/17/21 History Patient History Medical History (Updated 11/19/21 @ 17:21 by Ana Maria Cervantes MD) Contusion of rib on right side Fall Lung cancer Social History Smoking Status: Current every day smoker Do You Dip or Chew Tobacco: No; Tobacco Cessation Education Requested by Patient: No Hx Alcohol Use: No Hx Substance Use: No Preferred Language: Indonesian Communication Ability: Effective Jet Handler Required: No Beliefs That Will Affect Care: None Current Living Situation: Alone Feels Safe at Home: Yes Safety Concerns: Feels Safe At This Time Assistive Devices: Cane and Walker Review of Systems Review of Systems: ESAS Pain 1/3 Dyspnea 0/3 Nausea 0/3 Anxiety 1/3 Drowsiness 0/3 PPS 50% Physical Exam Constitutional: + ill appearing and + thin ENMT: Mouth: oral mucous membranes not dry Respiratory: normal respiratory effort; no labored breathing Cardiovascular: Rate/Rhythm: + irregularly irregular Musculoskeletal: Extremities: + muscle atrophy Skin: warm and dry Neurologic: Speech / Cognition: normal cognition confused at times Results & Data ([facility]) Vital Signs (Past 12 Hours) Vital Signs Temp Pulse Pulse Resp BP Pulse Ox O2 Del Method 11/19/21 14:22 86 11/19/21 05:55 91 H 11/19/21 15:48 97.3 F L 91 H 20 173/65 H 92 Room Air 11/19/21 14:58 86 18 93 Room Air 11/19/21 11:54 98.4 F 84 167/74 H 92 Room Air 11/19/21 10:52 74 18 93 Room Air 11/19/21 06:53 101 H 18 90 Room Air PG Care Time/CCT Total # of Minutes Spent Total Time Spent: 65 Total Time Spent with Patient: Total time spent is greater than 50% in coordination of care (as documented) at patient's floor/unit and/or counseling patient: goals of care, hospice, patient and family education and support, coordination of care Coding Level of Care Code 32155 Initial Inpt Care Lvl 2 Diagnoses Dyspnea R06.00 Palliative care encounter Z51.5 Pulmonary mass R91.8
[2021-11-19] MEDS ORDERED: amLODIPine BESYLATE 5 MG TAB PO ONE (18:23)
[2021-11-19 20:28] LABS: Partial Thromboplastin Ratio 1.9
--- NOTE | 2021-11-19 21:59 | Hospitalist Progress Note ---
Date of Service November 19, 2021 Assessment & Plan (1) Atrial fibrillation with RVR: Plan: -Admit to med/tele -Patient is currently afebrile, hemodynamically stable, and stable on RA -Etiology and duration of afib unknown at this time, patient has multiple risk factors -HR currently in the low 100's, likely due to her COPD exacerbation as well -Will obtain TSH and TTE for further workup -Patient not on anticoagulation prior and high risk for PE, stable renal fu nction, will obtain CTA of the chest to monitor for PE and further evaluate pulmonary nodules -Patient and her daughter would like to start anticoagulation after risks and benefits discussion, will start on heparin drip for now -Continue BID metoprolol tartrate 25 mg PO -Will add prn IV lopressor for HR control -will increase beta radha in AM to help manage heart rate. It appears family and patient is leaning towards hospice as no intervention Palliative care consult obtained. Patient will be discharged home on home hospice once arrangements have been made. (2) Acute exacerbation of chronic obstructive airways disease: Plan: -Patient is very non-compliant with medications, was not on any breathing treatments and was still smoking up until 1-2 weeks ago when her cough worsened -Currently stable on RA -Multiple possible etiologies for exacerbation including poor medical compliance, smoking, current pulmonary nodules, and possible infectious etiology -Lower suspicion for infectious etiology at this time as she is without leukocytosis, fever, and negative procal. -Will treat as a typical exacerbation at this time with scheduled DuoNebs, 40 mg PO prednisone daily x 5 days, and Doxycycline for now -currently titrating nasal cannula. (3) Elevated troponin I level: Plan: -Noted to be 67.6 on arrival, patient denies chest pain -trop is trending down. (4) Thrombocytosis: Plan: -Platelet count today noted to be 549, no other major abnormalities noted on the CBC, liver function WNL -At this time would think this is more reactive from her possible malignancy and COPD -Will add on peripheral smear to help with evaluation -platelet are down trending. (5) Acute hyponatremia: Plan: -Noted to be 123 in the ED, patient is asymptomatic -Per history, patient has a poor appetite and does not eat or drink much, is not on diuretics prior to arrival. Patient could very well have a component of SIADH with possible cancer and COPD exacerbation -Was given 40 mg IV lasix in the ED prior to admission for signs of pulmonary edema and pleural effusions on chest xray -Will obtain serum osmolality and urine osmolality to start the workup -Start a regular diet but with a NO FREE WATER placed in the order -sodium has improved. will monitor. (6) Hypertension: Plan: -Hemodynamically stable -Continue metoprolol and telmisartan (7) Pulmonary nodules: Plan: -Hx of lung cancer and currently smoking -Getting CTA for further evaluation (8) H/O carotid endarterectomy: Plan: -Continue aspirin Admission and Anticipated Discharge Date Admission Date: November 17, 2021 Subjective No new symptoms Review of Systems Review of Systems: All systems reviewed & are unremarkable except as noted in HPI & below Physical Exam Physical Exam: General: In no acute distress, stated age, non-toxic appearing, chronically ill-appearing HEENT: Normocephalic, atraumatic, no scleral icterus, pupils around round, symmetrical, and reactive to light, moist mucus membranes, trachea midline, no thyromegaly Chest/Pulm: No respiratory distress, coughing frequently, symmetrical chest expansion, scattered rhonchi with BL expiratory wheezing throughout Cardiac: irregular rate and rhythm, systolic murmur noted Abdomen: Negative for ascites and bruising, normoactive bowel sounds, soft, non- tender to palpation throughout Musculoskeletal: Symmetrical and without signs of acute trauma, upper and lower extremities with full ROM, no atrophy, spasticity, or flaccidity Extremities: Radial, dorsalis pedis, and posterior tibial pulses are intact and symmetrical, no edema noted in the BL LE's Skin: Warm, dry, no rashes , lesions, or scars noted Neuro: Alert and oriented to person, place, month, year, and president, no focal defects, CN II-XII tested and intact, finger to nose test negative, no tremors noted Psych: No acute distress, calm and cooperative during the exam Results & Data Results & Data ([facility]) Vital Signs (Past 12 Hours) Vital Signs Temp Pulse Pulse Pulse Resp BP BP 11/19/21 21:30 82 184/71 H 11/19/21 20:02 90 18 11/19/21 19:51 36.6 C 98 H 18 206/85 H 11/19/21 14:00 11/19/21 18:00 196/68 H 202/65 H 11/19/21 14:22 86 11/19/21 15:48 36.3 C L 91 H 20 173/65 H 11/19/21 14:58 86 18 11/19/21 11:54 36.9 C 84 167/74 H 11/19/21 10:52 74 18 Pulse Ox Pulse Ox O2 Del Method O2 Del Method 11/19/21 21:30 94 Room Air 11/19/21 20:02 96 Room Air 11/19/21 19:51 93 Room Air 11/19/21 14:00 95 Room Air 11/19/21 18:00 11/19/21 14:22 11/19/21 15:48 92 Room Air 11/19/21 14:58 93 Room Air 11/19/21 11:54 92 Room Air 11/19/21 10:52 93 Room Air PG Care Time/CCT Total # of Minutes Spent Total Time Spent with Patient: Total time spent is greater than 50% in coordination of care (as documented) at patient's floor/unit and/or counseling patient: Coding Level of Care Code 09547 Subseq Hosp Care Lvl 2 Diagnoses Atrial fibrillation with RVR I48.91 Acute exacerbation of chronic obstructive airways disease J44.1 Elevated troponin I level R77.8 Thrombocytosis D75.839 Acute hyponatremia E87.1 Hypertension I10 Pulmonary nodules R91.8 H/O carotid endarterectomy Z98.890
[2021-11-20] MEDS: HEPARIN SODIUM/DEXTROSE 25,000 UNITS/500 ML BAG IV SCH (01:56)
[2021-11-20 06:19] LABS: Hematocrit (blood only) 33.7 % (34.1-44.9); Hemoglobin 11.9 g/dl (12.0-16.0); Mean Corpuscular Hgb Conc 35.3 g/dL (32.0-36.0); Mean Corpuscular Volume 87.8 fL (80.0-100.0); Mean Platelet Volume 8.7 fL (9.4-12.3); Platelet Count 541 K/uL (130-400); RDW Coefficient of Variation 11.9 % (11.5-14.5); RDW Standard Deviation 38.1 fL (36.4-46.3); Red Blood Count 3.84 M/uL (3.93-5.22); White Blood Count 10.91 K/ul (4.8-10.8)
[2021-11-20] MEDS: METOPROLOL TARTRATE 25 MG TAB PO SCH ×2 (06:48→20:03)
[2021-11-20 06:49] LABS: BUN Creatinine Ratio 21.3 (10-20); Calcium 8.9 mg/dl (8.5-10.1); Creatinine Clr Calc Pharmacy 64.5 ml/min; Est GFR (African American) 104.4 ml/min; Est GFR (Non-African American) 90.1 ml/min; Potassium 3.6 mmol/L (3.5-5.1)
[2021-11-20] MEDS: ALBUT/IPRATROP 3MG/0.5MG NEB 3 ML VIAL NEB SCH ×2 (07:06→11:06)
[2021-11-20 07:09] LABS: Partial Thromboplastin Ratio 1.9
[2021-11-20 07:20] LABS: Partial Thromboplastin Time 51.9 Seconds (21.0-31.0)
[2021-11-20] MEDS: ESCITALOPRAM OXALATE 10 MG TAB PO SCH (08:16)
[2021-11-20] MEDS: ASPIRIN 81 MG ECTAB PO SCH (08:17)
[2021-11-20] MEDS: TELMISARTAN 40 MG TAB PO SCH (08:18)
[2021-11-20] MEDS: DOXYCYCLINE HYCLATE 100 MG CAP PO SCH ×2 (08:19→20:04)
[2021-11-20] MEDS ORDERED: predniSONE 20 MG TAB PO SCH (09:00)
[2021-11-20] MEDS ORDERED: ALBUT/IPRATROP 3MG/0.5MG NEB 3 ML VIAL NEB PRN (11:47)
[2021-11-20] MEDS: APIXABAN 2.5 MG TAB PO SCH ×2 (13:26→20:06)
[2021-11-20] MEDS ORDERED: [UNRECOGNIZED DRUG - REMARK] ONE (13:45)
[2021-11-20 16:06] LABS: Partial Thromboplastin Ratio 1.2; Partial Thromboplastin Time 32.4 Seconds (21.0-31.0)
[2021-11-20] MEDS: LORazepam 0.5 MG TAB PO PRN (20:08)
--- NOTE | 2021-11-20 22:17 | Hospitalist Progress Note ---
Date of Service November 20, 2021 Assessment & Plan (1) Atrial fibrillation with RVR: Plan: -Admit to med/tele -Patient is currently afebrile, hemodynamically stable, and stable on RA -Etiology and duration of afib unknown at this time, patient has multiple risk factors -HR currently in the low 100's, likely due to her COPD exacerbation as well -Will obtain TSH and TTE for further workup -Patient not on anticoagulation prior and high risk for PE, stable renal fu nction, will obtain CTA of the chest to monitor for PE and further evaluate pulmonary nodules -Patient and her daughter would like to start anticoagulation after risks and benefits discussion, will start on heparin drip for now -Continue BID metoprolol tartrate 25 mg PO -Will add prn IV lopressor for HR control -will increase beta radha in AM to help manage heart rate. It appears family and patient is leaning towards hospice as no intervention Palliative care consult obtained. Patient will be discharged home on home hospice once arrangements have been made. (2) Acute exacerbation of chronic obstructive airways disease: Plan: -Patient is very non-compliant with medications, was not on any breathing treatments and was still smoking up until 1-2 weeks ago when her cough worsened -Currently stable on RA -Multiple possible etiologies for exacerbation including poor medical compliance, smoking, current pulmonary nodules, and possible infectious etiology -Lower suspicion for infectious etiology at this time as she is without leukocytosis, fever, and negative procal. -Will treat as a typical exacerbation at this time with scheduled DuoNebs, 40 mg PO prednisone daily x 5 days, and Doxycycline for now -currently titrating nasal cannula. Titrated prednsione on 11/20 prednisone to 20 mg daily (3) Elevated troponin I level: Plan: -Noted to be 67.6 on arrival, patient denies chest pain -trop is trending down. (4) Thrombocytosis: Plan: -Platelet count today noted to be 549, no other major abnormalities noted on the CBC, liver function WNL -At this time would think this is more reactive from her possible malignancy and COPD -Will add on peripheral smear to help with evaluation -platelet are down trending. (5) Acute hyponatremia: Plan: -Noted to be 123 in the ED, patient is asymptomatic -Per history, patient has a poor appetite and does not eat or drink much, is not on diuretics prior to arrival. Patient could very well have a component of SIADH with possible cancer and COPD exacerbation -Was given 40 mg IV lasix in the ED prior to admission for signs of pulmonary edema and pleural effusions on chest xray -Will obtain serum osmolality and urine osmolality to start the workup -Start a regular diet but with a NO FREE WATER placed in the order -sodium has improved. will monitor. (6) Hypertension: Plan: -Hemodynamically stable -Continue metoprolol and telmisartan added amlodipine the day prior. titratd prednsione to 20mg. (7) Pulmonary nodules: Plan: -Hx of lung cancer and currently smoking -Getting CTA for further evaluation (8) H/O carotid endarterectomy: Plan: -Continue aspirin Admission and Anticipated Discharge Date Admission Date: November 17, 2021 Subjective Patient has been intermittently confused today. Patient reports no new symptoms. Review of Systems Review of Systems: All systems reviewed & are unremarkable except as noted in HPI & below Physical Exam Physical Exam: General: In no acute distress, stated age, non-toxic appearing, chronically ill-appearing HEENT: Normocephalic, atraumatic, no scleral icterus, pupils around round, symmetrical, and reactive to light, moist mucus membranes, trachea midline, no thyromegaly Chest/Pulm: No respiratory distress, coughing frequently, symmetrical chest expansion, scattered rhonchi with BL expiratory wheezing throughout Cardiac: irregular rate and rhythm, systolic murmur noted Abdomen: Negative for ascites and bruising, normoactive bowel sounds, soft, non- tender to palpation throughout Musculoskeletal: Symmetrical and without signs of acute trauma, upper and lower extremities with full ROM, no atrophy, spasticity, or flaccidity Extremities: Radial, dorsalis pedis, and posterior tibial pulses are intact and symmetrical, no edema noted in the BL LE's Skin: Warm, dry, no rashes , lesions, or scars noted Neuro: Alert and oriented to person, place, month, year, and president, no focal defects, CN II-XII tested and intact, finger to nose test negative, no tremors noted Psych: No acute distress, calm and cooperative during the exam Results & Data Results & Data ([facility]) Vital Signs (Past 12 Hours) Vital Signs Temp Pulse Pulse Resp BP Pulse Ox O2 Del Method 11/20/21 19:50 36.7 C 94 H 18 141/60 H 92 Room Air 11/20/21 14:26 76 11/20/21 15:26 36.4 C L 71 18 170/52 H 92 Room Air 11/20/21 11:29 36.6 C 84 18 174/71 H 93 Room Air PG Care Time/CCT Total # of Minutes Spent Total Time Spent with Patient: Total time spent is greater than 50% in coordination of care (as documented) at patient's floor/unit and/or counseling patient: Coding Level of Care Code 99659 Subseq Hosp Care Lvl 2 Diagnoses Atrial fibrillation with RVR I48.91 Acute exacerbation of chronic obstructive airways disease J44.1 Elevated troponin I level R77.8 Thrombocytosis D75.839 Acute hyponatremia E87.1 Hypertension I10 Pulmonary nodules R91.8 H/O carotid endarterectomy Z98.890
[2021-11-21] MEDS ORDERED: hydrALAZINE HCL 20 MG/ML VIAL IV ONE (02:45)
[2021-11-21] MEDS ORDERED: amLODIPine BESYLATE 5 MG TAB PO ONE (06:45)
[2021-11-21] MEDS: ASPIRIN 81 MG ECTAB PO SCH (08:49)
[2021-11-21] MEDS: ESCITALOPRAM OXALATE 10 MG TAB PO SCH (08:49)
[2021-11-21] MEDS: DOXYCYCLINE HYCLATE 100 MG CAP PO SCH (08:49)
[2021-11-21] MEDS: METOPROLOL TARTRATE 25 MG TAB PO SCH (08:50)
[2021-11-21] MEDS: TELMISARTAN 40 MG TAB PO SCH (08:51)
[2021-11-21] MEDS: APIXABAN 2.5 MG TAB PO SCH (08:51)
--- NOTE | 2021-11-21 12:09 | Consultation ---
Date of Consultation November 21, 2021 Assessment & Plan (1) Pulmonary mass: Testing testing test History of Present Illness Requesting Physician: Reason for Consultation: Pulmonary mass Attending Physician: Waldo Jolley History of Present Illness Given this is the history of present Allergies Allergy/AdvReac Type Severity Reaction Status Date / Time penicillin G Allergy Intermediate HIVES,RASH Verified 11/17/21 16:13 Sulfa (Sulfonamide Allergy Intermediate Hives Verified 11/17/21 16:13 Antibiotics) codeine AdvReac Severe HALLUCINATI Verified 11/17/21 16:13 ONS Home Medications Medication Instructions Recorded Confirmed Type aspirin 81 mg tablet,delayed 81 mg PO DAILY 02/26/18 11/17/21 History release escitalopram oxalate 5 mg tablet 5 mg PO DAILY 02/26/18 11/17/21 History lorazepam 0.5 mg tablet 0.5 mg PO BID PRN Anxiety 02/26/18 11/17/21 History metoprolol tartrate 25 mg tablet 25 mg PO BID 02/26/18 11/17/21 History azithromycin 500 mg tablet 500 mg PO DIRECTED PRN PRIOR TO 11/17/21 11/17/21 History DENTAL APPT. cetirizine 10 mg tablet (All Day 10 mg PO DAILY 11/17/21 11/17/21 History Allergy (cetirizine)) cholecalciferol (vitamin D3) 25 25 mcg PO DAILY 11/17/21 11/17/21 History mcg (1,000 unit) capsule (Vitamin D3) simethicone 80 mg chewable tablet 80 mg PO DIRECTED PRN 11/17/21 11/17/21 History BLOATING/GAS DISCOMFORT telmisartan 80 mg tablet 80 mg PO DAILY 11/17/21 11/17/21 History Patient History Medical History (Updated 11/19/21 @ 17:21 by Ana Maria Cervantes MD) Contusion of rib on right side Fall Lung cancer Social History Smoking Status: Current every day smoker Do You Dip or Chew Tobacco: No; Tobacco Cessation Education Requested by Patient: No Hx Alcohol Use: No Hx Substance Use: No Preferred Language: Latvian Communication Ability: Effective 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 Beliefs That Will Affect Care: None Current Living Situation: Alone Feels Safe at Home: Yes Safety Concerns: Feels Safe At This Time Assistive Devices: Cane and Walker Review of Systems Review of Systems: Get away with now complete review of systems was without other indications of immediately relevant if Results & Data ([facility]) Vital Signs (Past 12 Hours) Vital Signs Temp Pulse Resp BP BP Pulse Ox O2 Del Method 11/21/21 10:57 36.9 C 74 18 114/54 L 90 Room Air 11/21/21 09:00 Room Air 11/21/21 02:32 36.5 C 82 18 204/67 H 90 Room Air PG Care Time/CCT Total # of Minutes Spent Total Time Spent with Patient: Total time spent is greater than 50% in coordination of care (as documented) at patient's floor/unit and/or counseling patient: Coding Diagnoses Pulmonary mass R91.8
--- NOTE | 2021-11-26 18:27 | Discharge Summary ---
Date of Service November 21, 2021 Admission HPI Per Admitting Provider Eden is an 86 year old female with a PMH significant for current tobacco use, COPD, anxiety, HTN, carotid artery stenosis S/P left endarterectomy, and previous lung lung cancer S/P right middle lobectomy in 2017 who presented to the [facility] ED on 11/17/21 with a chief complaint of SOB. At the time of the exam the patient was resting in bed currently receiving a breathing treatment with her daughter sitting bedside. History was obtained from both the patient and her daughter. They state that the patient has a baseline smoker's cough but over the past few weeks it has been worse. She has had increased sputum production but is unsure of the color of her sputum. She denies recent fevers, chills, chest pain, lightheadedness, dizziness, and recent falls. Her daughter says that the patient is very stubborn and often non-compliant with medications. Her daughter states that the patient has refused breathing treatments for her COPD in the past because she is stubborn. She has been smoking since she was 19 but has not been able to smoke over the past few weeks because her cough has been so bad. When asked, the patient and her daughter denies a history of afib, the patient thinks that she has felt heart palpitations over the past few weeks but is not entirely sure. I asked them about her previous lung cancer diagnosis. They state that she had a previous right middle lobectomy in 2017 for lung cancer. Her daughter states they were told it was lung cancer but she is not sure what kind. Her daughter states they were clearly told it was cancer. When I asked if she ever received chemotherapy or radiation therapy they told me that they were told she did not need either. When asked about her diet, her daughter states that she does not eat very well. She elaborated by saying that when the patient is at home, by herself, she does not eat or drink much. But when she is at her daughter's house she will eat well because her daughter cooks for her. They confirm that the patient is not currently on a diuretic. I spoke to them regarding the pulmonary nodules found on chest xray today. I explained that with her cancer history and smoking history there is a high risk for lung cancer, she and her daughter acknowledged understanding. I explained that we will get a CTA of her chest to rule out PE and get a better picture of the nodules to help form a plan moving forward. I explained to them that with her new onset afib we will continue a workup to find the cause, she has multiple different risk factors. I explained that she is a high risk for both stroke and bleeding if we would start anticoagulation. She and her daughter confirmed that she is not a fall risk and does not have a history of major bleeding. After discussing the risks and benefits the patient and her daughter would like to proceed with anticoagulation at this time. We discussed code status, they explained that the patient is a DNR/DNI and her daughter would make decisions for her if she could not make them herself. In the ED the patient was found to be afebrile, hemodynamically stable, and stable on room air. The patient's HR was controlled after breathing treatments and better respiratory status. Labs were remarkable for normal white count, platelet count of 549, ESR of 96, pH on VBG of 7.42, sodium of 123, chloride of 89, lactate of 1.2, CRP of 8.28, procal of < 0.05, and negative covid, influenza, and RSV PCR. Chest xray shows "Several nodular opacities within the left lung, as described above. These may be neoplastic. Nonemergent chest CT is recommended. Small right and trace left pleural effusions. Suspected mild interstitial pulmonary edema.". In the ED the patient was given DuoNeb treatments, and 40 mg IV lasix. Principal Diagnosis atrial fibrillation with RVR Discharge Exam General: In no acute distress, stated age, non-toxic appearing, chronically ill- appearing HEENT: Normocephalic, atraumatic, no scleral icterus, pupils around round, symmetrical, and reactive to light, moist mucus membranes, trachea midline, no thyromegaly Chest/Pulm: No respiratory distress, coughing frequently, symmetrical chest expansion, scattered rhonchi with BL expiratory wheezing throughout Cardiac: irregular rate and rhythm, systolic murmur noted Abdomen: Negative for ascites and bruising, normoactive bowel sounds, soft, non- tender to palpation throughout Musculoskeletal: Symmetrical and without signs of acute trauma, upper and lower extremities with full ROM, no atrophy, spasticity, or flaccidity Extremities: Radial, dorsalis pedis, and posterior tibial pulses are intact and symmetrical, no edema noted in the BL LE's Skin: Warm, dry, no rashes , lesions, or scars noted Neuro: Alert and oriented to person, place, month, year, and president, no focal defects, CN II-XII tested and intact, finger to nose test negative, no tremors noted Psych: No acute distress, calm and cooperative during the exam Discharge Data Allergies Allergy/AdvReac Type Severity Reaction Status Date / Time penicillin G Allergy Intermediate HIVES,RASH Verified 11/17/21 16:13 Sulfa (Sulfonamide Allergy Intermediate Hives Verified 11/17/21 16:13 Antibiotics) codeine AdvReac Severe HALLUCINATI Verified 11/17/21 16:13 ONS Consultations 11/17/21 16:54 ED Decision to Admit Stat 11/17/21 20:35 Consult Oncology Routine Consult Pulmonology Routine 11/18/21 15:51 Consult Palliative Care Routine Ordered Studies 11/17/21 17:31 CT angio chest PE protocol Stat Hospital Course (1) Atrial fibrillation with RVR: -Admitted to med/tele A. fib RVR and COPD exacerbation in the setting of likely recurrent metastatic lung cancer. -Patient is currently afebrile, hemodynamically stable, and stable on RA -Etiology and duration of afib unknown at this time, patient has multiple risk factors -Due to elevated HR, increased metoprolol to 37.5 mg PO BID. -HR was better controlled with this. -Patient not on anticoagulation prior and high risk for PE, stable renal function, will obtain CTA of the chest to monitor for PE and further evaluate pulmonary nodules -Patient and her daughter would like to start anticoagulation after risks and benefits discussion, treated with heprain and transitioned to ELIQUIS at [facility]. (2) Acute exacerbation of chronic obstructive airways disease: -Patient is very non-compliant with medications, was not on any breathing treatments and was still smoking up until 1-2 weeks ago when her cough worsened -Currently stable on RA -Multiple possible etiologies for exacerbation including poor medical compliance, smoking, current pulmonary nodules, and possible infectious etiology -Lower suspicion for infectious etiology at this time as she is without leukocytosis, fever, and negative procal. -Will treat as a typical exacerbation at this time with scheduled DuoNebs, 40 mg PO prednisone daily x 5 days, and Doxycycline for now -Monitor on tele and pulse oximetry, prn O2 for SpO2 less than 89 % as target O2 should be 89-92% - (3) Elevated troponin I level: -Noted to be 67.6 on arrival, patient denies chest pain (4) Thrombocytosis: -Platelet count today noted to be 549, no other major abnormalities noted on the CBC, liver function WNL -appears secondary to malignancy (5) Acute hyponatremia: -Noted to be 123 in the ED, patient is asymptomatic -Per history, patient has a poor appetite and does not eat or drink much, is not on diuretics prior to arrival. Patient could very well have a component of SIADH with possible cancer and COPD exacerbation -Was given 40 mg IV lasix in the ED prior to admission for signs of pulmonary edema and pleural effusions on chest xray -Will obtain serum osmolality and urine osmolality to start the workup -Start a regular diet but with a NO FREE WATER placed in the order -Will repeat a BMP at 8pm to ensure she is not overcorrecting too quickly (6) Hypertension: -Hemodynamically stable -Continue metoprolol and telmisartan (7) Pulmonary nodules: -Hx of lung cancer and currently smoking -CTA chest showed: 1. 3.4 x 2.2 cm subpleural left lower lobe mass suggestive of primary bronchogenic carcinoma. 3.1 x 2 cm lobulated left upper lobe mass with cystic spaces which is also neoplastic. 2. 4.9 x 3.7 cm masslike density within the posterior basal segment of the left lower lobe. This could be neoplastic or represent pneumonia. Patient will be discharged on home hospice as patient is not interested in further workup of her lung mass. (8) H/O carotid endarterectomy: -Continue aspirin Total Time Total Time Spent Total Time Spent (In Minutes): 35 Discharge Plan Discharge Items Patient Disposition: Hospice - Home Reason For Visit: SOB Discharge Diagnosis: SOB Activity: Resume your previous activity Non-emergency contact: Primary Care Provider Call non-emergency contact if: you have any medication questions Follow-up/Referrals: Ekta Molina DO [Primary Care Provider] - Diet: Regular Addtl Attending Provider Instructions: will be discharged on home hospice. Pending Studies at Discharge: No Stand-Alone Forms: [facility] [employer] Medications and DC Order Prescriptions: New doxycycline hyclate 100 mg Capsule 100 mg PO BID Qty: 3 0RF Eliquis 2.5 mg Tablet 2.5 mg PO BID Qty: 60 0RF metoprolol tartrate 25 mg Tablet 37.5 mg PO BID 30 Days Qty: 90 0RF Continued aspirin 81 mg Tablet,Delayed Release (Dr/Ec) 81 mg PO DAILY lorazepam 0.5 mg tablet 0.5 mg PO BID PRN (Reason: Anxiety) escitalopram oxalate 5 mg tablet 5 mg PO DAILY cetirizine [All Day Allergy (cetirizine)] 10 mg Tablet 10 mg PO DAILY telmisartan 80 mg tablet 80 mg PO DAILY simethicone 80 mg Tablet,Chewable 80 mg PO DIRECTED PRN (Reason: BLOATING/GAS DISCOMFORT) cholecalciferol (vitamin D3) [Vitamin D3] 25 mcg (1,000 unit) Capsule 25 mcg PO DAILY azithromycin 500 mg Tablet 500 mg PO DIRECTED PRN (Reason: PRIOR TO DENTAL APPT.) Discontinued metoprolol tartrate 25 mg tablet 25 mg PO BID Discharge Orders: Discharge Order (Routine); Ordered 11/21/21 Ordered By: Waldo Jolley Admission Data Admit Date/Time: 11/17/21 17:00 Attending Provider: Waldo Jolley Admit Provider: Waldo Jolley Primary Care Provider: Ekta Molina Other Providers: Waldo Jolley ; Hussein Quinteros ; Brant Carroll ; Rojelio Ortega ; Krissy Barrios ; Jacki Tobar ; Monalisa Forrest ; Candelario Villatoro ; Margarita Urbano ; Pamela Padilla ; Branden Valentin ; Gary Veloz ; Any Razo ; luis [email or web address],No Attending ; Ana Maria Cervantes Other Interventions: Discharge Summary Assessment (RN) Last Done: 11/21/21 13:47 Coding Level of Care Code D/C DAY MANAGEMENT >30 MINS Diagnoses Atrial fibrillation with RVR I48.91 Acute exacerbation of chronic obstructive airways disease J44.1 Elevated troponin I level R77.8 Thrombocytosis D75.839 Acute hyponatremia E87.1 Hypertension I10 Pulmonary nodules R91.8 H/O carotid endarterectomy Z98.890
== END 2021-11-21 14:36 | disposition hospice, home (50) | DRG 181 ==
LOC: ED 12:27 → INTOOBSV 17:00 → 2N 17:00
DX: I48.91 Unspecified atrial fibrillation; Z88.0 Allergy status to penicillin; C78.7 Secondary malignant neoplasm of liver and intrahepatic bile duct; I10 Essential (primary) hypertension; Z88.6 Allergy status to analgesic agent; D59.19 Other autoimmune hemolytic anemia; R91.8 Other nonspecific abnormal finding of lung field; R77.8 Other specified abnormalities of plasma proteins; Z51.5 Encounter for palliative care; J44.1 Chronic obstructive pulmonary disease with (acute) exacerbation; Z79.82 Long term (current) use of aspirin; E87.1 Hypo-osmolality and hyponatremia; Z66 Do not resuscitate; Z98.890 Other specified postprocedural states; I45.4 Nonspecific intraventricular block; R59.0 Localized enlarged lymph nodes; Z91.14 Patient's other noncompliance with medication regimen; F17.200 Nicotine dependence, unspecified, uncomplicated; C34.12 Malignant neoplasm of upper lobe, left bronchus or lung; Z88.2 Allergy status to sulfonamides; D75.839 Thrombocytosis, unspecified